=== PATIENT | female | born 1960 | race Caucasian/White ===

== ENCOUNTER → 2016-04-03 | Outpatient (REF) | payer BC ==
[~2016-04-03] MED LIST: /PANT40TA OR; /WARF5TA OR; ALDA25TA PO; ASPI81TA85 PO; BACI50OI EXT; BENA25CA2 PO; CEPH500C PO; ENOX40SY SC; FERR325T OR; FERR32TA PO; HYDR25TA6 OR; IBUP20TA PO; K-TA10TA PO; KLOR10TA OR; LEVO75TA2 OR; LEVO75TA4 PO; LISI-538 PO; LISI20TA5 OR; MILKSUS OR; NEXI20CA PO; PENT400T47 PO; PERC5TAB8 OR; PERCOCET PO; POTA20TA OR; SENN8.6C PO; SILV-4 TOP; TRENTAL PO; senokot s PO
== END ==
LOC: M LAB REF 16:12
PROVIDERS: ATTEND Surgery
DX: I87.312 Chronic venous hypertension (idiopathic) with ulcer of left lower extremity (principal)

== ENCOUNTER → 2016-05-23 | Outpatient (CLI) | payer BC ==
[~2016-05-23] MED LIST changes: +IBUP200T45 PO; -IBUP20TA PO
[2016-05-23 09:47] LABS: ALBUMIN 3.3 GM/DL (3.2-5.2); ALBUMIN/GLOBULIN RATIO 0.83 (1.00-1.93); ALKALINE PHOSPHATASE 81 U/L (45-117); ALT/SGPT 22 U/L (12-78); ANION GAP 8 MEQ/L (8-16); AST/SGOT 63 U/L (15-37); BILIRUBIN,TOTAL 0.3 MG/DL (0.2-1.0); BLOOD UREA NITROGEN 19 MG/DL (7-18); CALCIUM LEVEL 8.5 MG/DL (8.5-10.1); CARBON DIOXIDE LEVEL 28 MEQ/L (21-32); CHLORIDE LEVEL 107 MEQ/L (98-107); CHOLESTEROL LEVEL 221 MG/DL (<200); CREATININE FOR GFR 0.91 MG/DL (0.55-1.02); FREE T4 1.05 NG/DL (0.76-1.46); GLOMERULAR FILTRATION RATE > 60.0 (>51); GLUCOSE, FASTING 99 MG/DL (70-105); PERCENT SATURATION 9.7 % (13.2-37.4); SODIUM LEVEL 143 MEQ/L (136-145); TOTAL IRON BINDING CAPACITY 290 UG/DL (250-450); TOTAL PROTEIN 7.3 GM/DL (6.4-8.2); TRIGLYCERIDES LEVEL 218 MG/DL (<150)
[2016-05-23 09:54] LABS: BASO % 0.5 % (0.0-1.0); EOS # 0.3 K/mm3 (0.0-0.50); EOS % 4.6 % (0.0-3.0); LARGE UNSTAINED CELL # 0.1 K/mm3 (0.0-0.4); LYMPH # 1.7 K/mm3 (1.5-4.5); LYMPH % 26.2 % (24.0-44.0); MEAN CORPUSCULAR HEMOGLOBIN 24.1 pg (27.0-33.0); MEAN CORPUSCULAR HGB CONC 31.5 g/dl (32.0-36.5); MEAN CORPUSCULAR VOLUME 76.7 fl (80.0-96.0); MONO # 0.4 K/mm3 (0.0-0.8); MONO % 6.3 % (0.0-5.0); NEUTROPHILS # 3.9 K/mm3 (1.8-7.7); NEUTROPHILS % 60.4 % (36.0-66.0); PLATELET COUNT, AUTOMATED 231 k/mm3 (150-450); RED CELL DISTRIBUTION WIDTH 15.5 % (11.5-14.5); WHITE BLOOD COUNT 6.5 K/mm3 (4.0-10.0)
== END ==
LOC: M LAB 08:20
PROVIDERS: ATTEND Nurse Practitioner Family
DX: D50.9 Iron deficiency anemia, unspecified (principal); I10 Essential (primary) hypertension; E03.9 Hypothyroidism, unspecified

== ENCOUNTER → 2016-12-04 | Outpatient (REF) | payer BC ==
[~2016-12-04] MED LIST changes: +BACI500O74 EXT; -BACI50OI EXT
== END ==
LOC: M LAB REF 17:35
PROVIDERS: ATTEND Surgery
DX: I87.312 Chronic venous hypertension (idiopathic) with ulcer of left lower extremity (principal)

== ENCOUNTER → 2017-11-26 | Outpatient (REF) | payer BC ==
[2017-11-26 12:21] LABS: HEMATOCRIT 36.9 % (36.0-47.0); HEMOGLOBIN 11.5 g/dl (12.0-15.5); MEAN CORPUSCULAR HEMOGLOBIN 24.4 pg (27.0-33.0); MEAN CORPUSCULAR HGB CONC 31.2 g/dl (32.0-36.5); MEAN CORPUSCULAR VOLUME 78.3 fl (80.0-96.0); PLATELET COUNT, AUTOMATED 332 10^3/uL (150-450); RED BLOOD COUNT 4.71 10^6/uL (4.00-5.40); RED CELL DISTRIBUTION WIDTH 17.5 % (11.5-14.5); WHITE BLOOD COUNT 9.6 10^3/uL (4.0-10.0)
[2017-11-26 13:53] LABS: ALBUMIN 3.2 GM/DL (3.2-5.2); ALBUMIN/GLOBULIN RATIO 0.74 (1.00-1.93); ALKALINE PHOSPHATASE 49 U/L (45-117); ALT/SGPT 21 U/L (12-78); ANION GAP 10 MEQ/L (8-16); AST/SGOT 47 U/L (7-37); BILIRUBIN,TOTAL 0.4 MG/DL (0.2-1.0); BLOOD UREA NITROGEN 33 MG/DL (7-18); CALCIUM LEVEL 9.7 MG/DL (8.5-10.1); CARBON DIOXIDE LEVEL 27 MEQ/L (21-32); CHLORIDE LEVEL 103 MEQ/L (98-107); CHOLESTEROL LEVEL 241 MG/DL (<200); CHOLESTEROL RISK RATIO 5.477 (<5); FREE T4 1.01 NG/DL (0.76-1.46); GLOMERULAR FILTRATION RATE 49.8 (>51); GLUCOSE, FASTING 93 MG/DL (70-100); HDL CHOLESTEROL 44 MG/DL (>40); IRON (FE) 40 UG/DL (50-170); LDL CHOLESTEROL 158.2 MG/DL (<100); NON-HDL-C 197 MG/DL; PERCENT SATURATION 13.7 % (13.2-45.0); POTASSIUM SERUM 4.3 MEQ/L (3.5-5.1); SODIUM LEVEL 140 MEQ/L (136-145); TOTAL IRON BINDING CAPACITY 293 UG/DL (250-450); TOTAL PROTEIN 7.5 GM/DL (6.4-8.2); TRIGLYCERIDES LEVEL 194 MG/DL (<150)
[2017-11-27 12:58] LABS: FERRITIN 74 NG/ML (8-252)
[2017-11-28 12:26] LABS: HEPATITIS B SURFACE ANTIGEN NEGATIVE (NEGATIVE)
[2017-11-28 12:43] LABS: HEPATITIS C VIRUS ABY INDEX 0.2 INDEX (<0.8)
[2017-11-28 12:45] LABS: HEPATITIS B CORE ANTIBODY IGM NEGATIVE (NEGATIVE)
[2017-11-28 12:46] LABS: HEPATITIS A ANTIBODY IGM NEGATIVE (NEGATIVE)
== END ==
LOC: M SFHCPLAZ 09:54
DX: D50.9 Iron deficiency anemia, unspecified (principal); E03.9 Hypothyroidism, unspecified; E78.5 Hyperlipidemia, unspecified; I10 Essential (primary) hypertension
CPT/HCPCS: 83550

== ENCOUNTER → 2018-01-21 | Outpatient (CLI) | payer BC | LOC: M RAD 08:45 | DX: I87.8 Other specified disorders of veins (principal) | CPT/HCPCS: 93971 ==

== ENCOUNTER → 2018-06-10 | Outpatient (REF) | payer BC ==
[~2018-06-10] MED LIST changes: -ALDA25TA PO; +SPIR1TAB34 PO
[2018-06-10 16:59] LABS: BILIRUBIN,TOTAL 0.3 MG/DL (0.2-1.0); CALCIUM LEVEL 8.3 MG/DL (8.5-10.1); CREATININE FOR GFR 1.26 MG/DL (0.55-1.30); GLOMERULAR FILTRATION RATE 46.9 (>51); POTASSIUM SERUM 3.6 MEQ/L (3.5-5.1); TOTAL PROTEIN 6.8 GM/DL (6.4-8.2)
== END ==
LOC: M SFHCPLAZ 16:20
PROVIDERS: ATTEND Nurse Practitioner Family
DX: I10 Essential (primary) hypertension (principal); N17.9 Acute kidney failure, unspecified

== ENCOUNTER → 2018-06-24 | Outpatient (REF) | payer BC ==
[2018-06-24 19:16] LABS: HEMOGLOBIN 10.7 g/dl (12.0-15.5); MEAN CORPUSCULAR HEMOGLOBIN 23.7 pg (27.0-33.0); MEAN CORPUSCULAR HGB CONC 30.6 g/dl (32.0-36.5); MEAN CORPUSCULAR VOLUME 77.4 fl (80.0-96.0); PLATELET COUNT, AUTOMATED 412 10^3/uL (150-450); RED BLOOD COUNT 4.52 10^6/uL (4.00-5.40); WHITE BLOOD COUNT 11.3 10^3/uL (4.0-10.0)
[2018-06-24 19:58] LABS: ALBUMIN 3.1 GM/DL (3.2-5.2); CALCIUM LEVEL 9.4 MG/DL (8.5-10.1); CREATININE FOR GFR 1.22 MG/DL (0.55-1.30); GLOMERULAR FILTRATION RATE 48.7 (>51); PHOSPHORUS LEVEL 4.4 MG/DL (2.5-4.9); POTASSIUM SERUM 3.9 MEQ/L (3.5-5.1); THYROID STIMULATING HORMONE 3.87 uIU/ML (0.358-3.740)
[2018-06-25 11:20] LABS: PERCENT SATURATION 12.3 % (13.2-45.0)
== END ==
LOC: M SFHCPLAZ 16:50
PROVIDERS: ATTEND Nurse Practitioner Family
DX: N18.3 Chronic kidney disease, stage 3 (moderate) (principal); E03.9 Hypothyroidism, unspecified; D50.9 Iron deficiency anemia, unspecified

== ENCOUNTER → 2018-08-26 | Outpatient (REF) | payer BC ==
[~2018-08-26] MED LIST changes: -/PANT40TA OR; -/WARF5TA OR; +COUM1TAB17 OR; -ENOX40SY SC; +LOVE1INJ SC; +PROT1TAB2 OR
== END ==
LOC: M LAB REF 12:36
PROVIDERS: ATTEND Plastic Surgery Surgery of the Hand
DX: L03.116 Cellulitis of left lower limb (principal)

== ENCOUNTER → 2018-12-02 | Outpatient (REF) | payer BC ==
[2018-12-02 18:58] LABS: CALCIUM LEVEL 9.2 MG/DL (8.5-10.1); CREATININE FOR GFR 1.27 MG/DL (0.55-1.30); GLOMERULAR FILTRATION RATE 46.5 (>51)
[2018-12-02 19:00] LABS: HEMATOCRIT 36.4 % (36.0-47.0); MEAN CORPUSCULAR HEMOGLOBIN 23.9 pg (27.0-33.0); MEAN CORPUSCULAR HGB CONC 30.2 g/dl (32.0-36.5); PLATELET COUNT, AUTOMATED 367 10^3/uL (150-450); RED BLOOD COUNT 4.61 10^6/uL (4.00-5.40)
== END ==
LOC: M SFHCPLAZ 14:59
PROVIDERS: ATTEND Nurse Practitioner Family
DX: I12.9 Hypertensive chronic kidney disease with stage 1 through stage 4 chronic kidney disease, or unspecified chronic kidney disease (principal); N18.3 Chronic kidney disease, stage 3 (moderate)

== ENCOUNTER → 2020-03-20 | Outpatient (CLI) | payer SELFPAY ==
[~2020-03-20] MED LIST changes: -ASPI81TA85 PO; +ASPI81TA86 PO
== END ==
LOC: M LABSMTC 11:22
PROVIDERS: ATTEND Pediatrics
DX: Z20.828 Contact with and (suspected) exposure to other viral communicable diseases (principal)

== ENCOUNTER 2020-09-26 17:33 | Inpatient (IN) | payer BC, SELFPAY ==
[~2020-09-26] VITALS: Ht 160 cm; Wt 93.4 kg
[~2020-09-26 17:33] MED LIST changes: -LISI-538 PO; +LISI20TA33 PO
[2020-09-26] MEDS ORDERED: ONDANSETRON 4MG/2ML VIAL IV ONE ×2 (18:25→21:45)
--- NOTE | 2020-09-26 18:55 | REP ---
INDICATION: DYSPNEA/COUGH COMPARISON: 07/10/2006 TECHNIQUE: Portable AP view of the chest FINDINGS: The mediastinum and cardiac silhouette are stable and within normal limits for portable technique. The lung salas are clear without acute consolidation, effusion, or pneumothorax. Skeletal structures are intact. IMPRESSION: No acute cardiopulmonary process appreciated. <Electronically signed by Aleksandr Fermin > 09/26/20 [id number]
[2020-09-26 18:58] LABS: BASO # 0.1 10^3/uL (0.0-0.2); BASO % 0.3 % (0.0-1.0); EOS # 0.1 10^3/uL (0.0-0.5); EOS % 0.6 % (0.0-3.0); HEMATOCRIT 26.8 % (36.0-47.0); HEMOGLOBIN 7.9 g/dl (12.0-15.5); LYMPH # 2.1 10^3/uL (1.5-5.0); LYMPH % 10.1 % (24.0-44.0); MEAN CORPUSCULAR HEMOGLOBIN 23.8 pg (27.0-33.0); MEAN CORPUSCULAR HGB CONC 29.5 g/dl (32.0-36.5); MEAN CORPUSCULAR VOLUME 80.7 fl (80.0-96.0); MONO # 1.6 10^3/uL (0.0-0.8); MONO % 7.7 % (2.0-8.0); NEUTROPHILS # 16.8 10^3/uL (1.5-8.5); NEUTROPHILS % 80.3 % (36.0-66.0); PLATELET COUNT, AUTOMATED 548 10^3/uL (150-450); RED BLOOD COUNT 3.32 10^6/uL (4.00-5.40)
[2020-09-26 19:19] LABS: ALBUMIN 2.3 GM/DL (3.2-5.2); ALT/SGPT 21 U/L (12-78); BILIRUBIN,DIRECT < 0.1 MG/DL (0.0-0.2); BILIRUBIN,TOTAL 0.2 MG/DL (0.2-1.0); BLOOD UREA NITROGEN 96 MG/DL (7-18); CALCIUM LEVEL 9.3 MG/DL (8.5-10.1); CARBON DIOXIDE LEVEL 14 MEQ/L (21-32); CHLORIDE LEVEL 106 MEQ/L (98-107); CREATININE FOR GFR 2.51 MG/DL (0.55-1.30); GLUCOSE, FASTING 101 MG/DL (70-100); POTASSIUM SERUM 4.1 MEQ/L (3.5-5.1); SODIUM LEVEL 137 MEQ/L (136-145); TOTAL PROTEIN 7.1 GM/DL (6.4-8.2)
[2020-09-26] MEDS ORDERED: MORPHINE 10 MG/ML 1ML VIAL (J2270) IM ONE (19:20)
[2020-09-26] MEDS ORDERED: MORPHINE 4 MG/ML 1ML VIAL/SYRINGE (J2270) IV ONE (21:45)
[2020-09-26] MEDS ORDERED: SYNT88TA2 PO (21:50)
[2020-09-26] MEDS ORDERED: GLUCTAB6 PO (21:50)
[2020-09-26] MEDS ORDERED: ACET-897 PO (21:50)
[2020-09-26] MEDS ORDERED: IBUP-1720 PO (21:50)
[2020-09-26] MEDS ORDERED: BENA25CA4 PO (21:50)
[2020-09-26] MEDS ORDERED: ALDA25TA4 PO (21:50)
[2020-09-26] MEDS ORDERED: OYST500T92 PO (21:50)
[2020-09-26] MEDS ORDERED: VITMTA PO (21:50)
[2020-09-26] MEDS ORDERED: CEFEPIME HCL 1 GM in D5W MINI-BAG PLUS 50 ML IV ONE (22:40)
[2020-09-26] MEDS ORDERED: PIPERACILLIN/TAZOBACTAM SOD 3.375 GM in D5W MINI-BAG PLUS 50 ML IV ONE (22:40)
[2020-09-26] MEDS ORDERED: MAALOX 30 ML SUSP *UDC PO PRN (23:05)
[2020-09-26] MEDS ORDERED: MOM 30ML SUSPENSION UDC PO PRN (23:05)
--- NOTE | 2020-09-26 23:34 | HPEPDOC ---
[facility] Medical History & Physical Date of Admission Sep 26, 2020 Date of Service: Sep 26, 2020 Attending Physician: ARIELLE MARTINES DO History and Physical CHIEF COMPLAINT: Left lower extremity swelling, erythema and pain HISTORY OF PRESENT ILLNESS: Mrs. Bliss is a 59-year-old female who presented to the ER with complaints of shortness of breath with exertion over the last 2 weeks. It's normally she is able to go about her activities of daily living with no difficulty other than the pain in her left lower extremity which is chronic. Over the last 2 weeks. She is noticed that she has had to stop and rest after even the simplest tasks. He denies any cough, fever, chills, nausea or vomiting. She has been experiencing diarrhea over the last 2 days. She states that the pain in her left lower extremity has got to the point where she cannot stand it, and for that reason she presented to the ER. She has a long history of chronic venous stasis ulcers on that leg. She was actually admitted 2015 with similar symptoms. She followed with Dr. Ortez until May of last year when [facility] closed everything down. She said she had been doing well with her leg up until that point. There have been plans for referral to a plastic surgeon, but her leg began to decline again last year without regular care. She says she has not been able to do any compression to that leg for quite some time and describes compression hose as being the problem. She denied any knowledge of compression with Torito wrap and thinks she might have tried Coban and at some point. For the last several months she has been treating her leg by applying maxipads to try to control the drainage. She states that she is house bound for the most part, because of her leg. She has also been experiencing some financial difficulty and her has not been in good health. On initial evaluation this evening. She was found to have a white count of 21,000. She was also noted to have an acute kidney injury with creatinine of 2.51 and a GFR of 21. Baseline creatinine, with a history of chronic kidney disease stage III, appears to be around 1.2-1.3. Baseline GFR appears to be around 46-49. Patient's previous acute kidney injury was attributed to NSAID use. She admits to increasing her use of ibuprofen in an attempt to control pain. She is also found to be anemic with a history of iron deficiency anemia. Hemoglobin and hematocrit were 7.9 and 26.8. She denied any signs or symptoms of active bleeding. Chest x-ray was negative for any acute pathology. O2 sat remained 99% on room air. PAST MEDICAL HISTORY: 1. Hypothyroid. 2. Hypertension. 3. Gastroesophageal reflux disease. 4. Chronic kidney disease stage III. 5. Peripheral vascular disease with venous stasis. 6. Chronic venous stasis ulcer, left lower extremity. 7. Iron deficiency anemia. 8. Blood clot PAST SURGICAL HISTORY: 1. Left hip arthroplasty 2. 2. Skin graft, left lower extremity. 3. Left great toe partial amputation. 4. Multiple debridements, left lower extremity SOCIAL HISTORY: Tobacco use: Denies ETOH:. Denies Illicit drug use: Denies Patient lives with: With her and found FAMILY HISTORY: Patient's mother at 78 from an unknown cancer. Her father was 81 with a history of coronary artery disease and an unknown cancer REVIEW OF SYSTEMS: Complete 10 point review systems is negative except as noted above PHYSICAL EXAMINATION: Patient is seen in the ER, sitting up on the stretcher. She is alert and oriented x 3. HEENT is WNL. Neck is supple. Lungs are clear to auscultation. Heart regular rate and rhythm with murmur. Abdomen is obese , soft, non-tender to palpation with bowel sounds positive. Extremities strength equal bilaterall y. 1+ lower extremity edema. Left lower extremity with circumferential chronic venous stasis ulcer, which is malodorous. Chronic thickening of the skin and open wounds with wound base is bland with a thick exudate. Some darker tissue noted in some of the wound beds. Erythema extending from from distal foot up to the lower portion of the wound. Foot with Charcot changes. Pedal pulses diminished. Refill fair. Neurologic: Grossly intact. Psych: She is pleasant and cooperative. ASSESSMENT AND PLAN: 1. Sepsis secondary to left lower extremity infected venous stasis ulcer with acute on chronic kidney injury and leukocytosis. We'll continue the patient on cefepime. Will initiate dressing changes. Patient would benefit from a wound care consult, as she will probably need some debridement. Would also recommend deep tissue cultures with debridement in order to guide antibiotic therapy. Will initiate compression. Patient counseled extensively on the need for compliance with wound care going forward. 2. Shortness of breath, possibly secondary to sepsis. Patient also with new heart murmur. Will check echocardiogram and BNP. Monitor intake and output closely. 3. Acute kidney injury with chronic kidney disease in the setting of ongoing NSAID use. Patient counseled to avoid NSAIDs. Monitor intake and output closely. Avoid nephrotoxic medications. Recheck renal function in morning. 4. Hypertension, essential. Continue home lisinopril and monitor with routine vital signs. Will adjust medications as needed based on trends. 5. Hypothyroid. Continue hormone replacement and check TSH. 6. Anemia, acute, secondary to acute blood loss with hemodilution on chronic with history of iron deficiency. Current studies. Nutritional status. Continue to monitor hemoglobin and hematocrit closely. Check Hemoccult of stool. 7. DVT prophylaxis. Will add heparin. CODE STATUS: CODE STATUS was discussed with patient desires to be considered full code. She states her would act as her surrogate if she were unable to make decisions. Patient is considered high risk of further deterioration including possible septic shock, or loss of limb. She is admitted as inpatient and expected to remain at least 2-3 midnights Vital Signs Vital Signs Date Time Temp Pulse Resp B/P (MAP) Pulse Ox O2 Delivery O2 Flow Rate FiO2 09/26/20 22:00 79 124/58 (80) 99 Room Air 09/26/20 21:51 20 09/26/20 17:34 97.8 Laboratory Data Labs 24H Laboratory Tests 2 09/26/20 18:44: Immature Granulocyte % (Auto) 1.0, Neutrophils (%) (Auto) 80.3H, Lymphocytes (%) (Auto) 10.1L, Monocytes (%) (Auto) 7.7, Eosinophils (%) (Auto) 0.6, Basophils (%) (Auto) 0.3, Neutrophils # (Auto) 16.8H, Lymphocytes # (Auto) 2.1, Monocytes # (Auto) 1.6H, Eosinophils # (Auto) 0.1, Basophils # (Auto) 0.1, Nucleated Red Blood Cells % (auto) 0.0, Anion Gap 17H, Glomerular Filtration Rate 21.0L, Calcium Level 9.3, Total Bilirubin 0.2, Direct Bilirubin < 0.1, Aspartate Amino Transf (AST/SGOT) 25, Alanine Aminotransferase (ALT/SGPT) 21, Alkaline Phosphatase 48, Total Protein 7.1, Albumin 2.3L, Albumin/Globulin Ratio 0.5L 09/26/20 19:07: POC Troponin I (Misc) 0.01 09/26/20 19:39: Coronavirus (COVID-19)(PCR) NEGATIVE CBC/BMP Laboratory Tests 09/26/20 18:44 Microbiology Microbiology 09/26/20 Blood Culture, Received Pending 09/26/20 Blood Culture, Received Pending Home Medications Scheduled Calcium Carbonate/Vitamin D3 (Calcium 500-Vit D3 200 Tablet) 1 Each Tablet, 1 TAB PO DAILY Gluc Richards/Chondro Richards A/Vit C/Mn (Glucosamine Chondroitin Tab) 1 Each Tablet, 1 TAB PO DAILY Levothyroxine Sodium (Synthroid) 88 Mcg Tablet, 88 MCG PO DAILY Multivitamins (Thera M Plus Tablet) 1 Each Tablet, 1 TAB PO DAILY Spironolact/Hydrochlorothiazid (Aldactazide 25-25 Tablet) 1 Each Tablet, 1 TAB PO DAILY Scheduled PRN Acetaminophen (Tylenol Extra Strength) 500 Mg Tablet, 500 MG PO Q4H PRN for PAIN LEVEL 1-5 Diphenhydramine HCl (Benadryl) 25 Mg Capsule, 25 MG PO QHS PRN for INSOMNIA Ibuprofen (Ibuprofen) 200 Mg Tablet, 400 MG PO Q6H PRN for PAIN LEVEL 1-5 Allergies Coded Allergies: iodine (Verified Allergy, Unknown, unknown, 09/26/20) naproxen (Verified Allergy, Unknown, unknown, 09/26/20) A-FIB/CHADSVASC A-FIB History Current/History of A-Fib/PAF?: No KWAKU VENTURA Sep 26, 2020 23:34
[2020-09-27] VITALS (9 sets, daily range): BP systolic 84–93; BP diastolic 49–58
[2020-09-27 00:06] LABS: NT-PRO BNP 851 PG/ML (<125)
[2020-09-27 00:15] LABS: HEMOGLOBIN A1c 6.3 %
[2020-09-27] MEDS: NORCO, ANEXSIA 5/325MG TABLET (HYDROcodone/ACETAMINOPHEN) PO PRN ×3 (01:29→17:09)
[2020-09-27] MEDS ORDERED: diphenhydrAMINE 25MG CAP PO PRN (03:15)
[2020-09-27 05:47] LABS: HEMATOCRIT 24.3 % (36.0-47.0); HEMOGLOBIN 7.2 g/dl (12.0-15.5); MEAN CORPUSCULAR HEMOGLOBIN 24.2 pg (27.0-33.0); MEAN CORPUSCULAR HGB CONC 29.6 g/dl (32.0-36.5); MEAN CORPUSCULAR VOLUME 81.5 fl (80.0-96.0); PLATELET COUNT, AUTOMATED 489 10^3/uL (150-450); RED BLOOD COUNT 2.98 10^6/uL (4.00-5.40); WHITE BLOOD COUNT 21.5 10^3/uL (4.0-10.0)
[2020-09-27] MEDS: HEPARIN SOD (PORCINE) 5000UNITS/ML 1ML VIAL/SYRINGE SC SCH ×2 (06:14→12:39)
[2020-09-27] MEDS: LEVOTHYROXINE 88MCG TABLET (0.088 MG) PO SCH (06:14)
[2020-09-27] MEDS: ACETAMINOPHEN TAB 650MG DOSE (2X325MG) PO PRN ×2 (06:14→21:15)
[2020-09-27 06:31] LABS: CALCIUM LEVEL 8.9 MG/DL (8.5-10.1); CREATININE FOR GFR 1.95 MG/DL (0.55-1.30); GLOMERULAR FILTRATION RATE 28.1 (>51); MAGNESIUM LEVEL 1.6 MG/DL (1.8-2.4); PERCENT SATURATION 8.8 % (13.2-45.0); POTASSIUM SERUM 4.1 MEQ/L (3.5-5.1); THYROID STIMULATING HORMONE 0.564 uIU/ML (0.358-3.740)
[2020-09-27 09:15] LABS: FOLATE 20.4 NG/ML (>5.4)
--- NOTE | 2020-09-27 11:15 | ECGEPIP ---
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
[2020-09-27] MEDS ORDERED: NS 500 ML IV ONE (12:10)
[2020-09-27] MEDS: NS 1,000 ML IV SCH ×2 (12:38→22:25)
--- NOTE | 2020-09-27 15:11 | IPNPDOC ---
Subjective Date Seen The patient was seen on 09/27/20. Subjective Chief Complaint/HPI left leg pain/wound Objective Physical Examination General Exam: Positive: Alert, Cooperative, No Acute Distress Eye Exam: Positive: PERRLA ENT Exam: Positive: Atraumatic Neck Exam: Positive: Supple Chest Exam: Positive: Clear to auscultation Heart Exam: Positive: Rate Normal Abdomen Exam: Positive: Normal bowel sounds Extremity Exam: Negative: Edema Skin Exam: Positive: Other skin issue (skin denudation over entire left lower leg with area of erythema with few bleeding spots ) Neuro Exam: Positive: Normal Speech, Strength at 5/5 X4 ext Psych Exam: Positive: Mood NL Assessment /Plan Assessment 59 y/o F with chronic left lower leg wound for that she f/u with Dr Ortez came to ER c/o exertional SOB, diarrhea and ambulatory dysfunction due to left lower extremity pain. Labs and imaging studies reviewed Pt c/o left leg pain Plan 1. Sepsis secondary to left leg cellulitis iv cefepime ivf NS f/u wound culture will f/u with Dr Ortez for possible debridement will f/u blood culture 2. chronic left lower extremity wound PO tylenol prn for pain pt got iv morphine for pain There have been plan to refer to a plastic surgeon. will f/u Dr Ortez wound care 3. exertional shortness of breath most probably secondary to symptomatic anemia no sign and symptom suggestive of active bleeding will f/u stool occult blood will transfuse 1 unit PRBC will f/u ECHO 4. YU on CKD stage 3 Baseline Cr 1.2-1.3 pt was taking PO Ibuprofen at home for left leg pain will f/u UA, US kidneys intake/output f/u repeat labs 5. Symptomatic anemia NSAIDs use for pain PO pantoprazole EGD inpatient vs outpatient if pt remains stable outpatient EGD/Colonoscopy as per PMD discretion NO NSAIDs 6. HTN will hold lisinopril in view of YU 7. Hypothyroidism home med 8. Obesity supportive care h/o Peripheral vascular disease with venous stasis h/o blood clot DVT ppx- chemical ppx contraindicated in view of symptomatic anemia, intermittent pneumatic compression Plan/VTE VTE Prophylaxis Ordered?: No VTE Exclusion Pharmacological: Bleeding Risk VS, I&O, 24H, Fishbone Vital Signs/I&O Vital Signs Date Time Temp Pulse Resp B/P (MAP) Pulse Ox O2 Delivery O2 Flow Rate FiO2 6/30/21 13:13 19 09/27/20 06:00 98.3 88 100 Room Air 09/27/20 05:51 93/51 (65) I&O- Last 24 Hours up to 6 AM 09/27/20 05:59 Intake Total 200 ml Balance 200 ml Laboratory Data 24H LABS Laboratory Tests 2 09/26/20 18:44: Immature Granulocyte % (Auto) 1.0, Neutrophils (%) (Auto) 80.3H, Lymphocytes (%) (Auto) 10.1L, Monocytes (%) (Auto) 7.7, Eosinophils (%) (Auto) 0.6, Basophils (%) (Auto) 0.3, Neutrophils # (Auto) 16.8H, Lymphocytes # (Auto) 2.1, Monocytes # (Auto) 1.6H, Eosinophils # (Auto) 0.1, Basophils # (Auto) 0.1, Nucleated Red Blood Cells % (auto) 0.0, Anion Gap 17H, Glomerular Filtration Rate 21.0L, Estimated Mean Plasma Glucose 134H, Hemoglobin A1c 6.3, Calcium Level 9.3, Total Bilirubin 0.2, Direct Bilirubin < 0.1, Aspartate Amino Transf (AST/SGOT) 25, Alanine Aminotransferase (ALT/SGPT) 21, Alkaline Phosphatase 48, BH-Lti-D-Type Natriuretic Peptide 851H, Total Protein 7.1, Albumin 2.3L, Albumin/Globulin Ratio 0.5L 09/26/20 19:07: POC Troponin I (Misc) 0.01 09/26/20 19:39: Coronavirus (COVID-19)(PCR) NEGATIVE 09/27/20 00:09: Lactic Acid Level 2.0 09/27/20 05:25: Nucleated Red Blood Cells % (auto) 0.0 09/27/20 05:26: Anion Gap 12, Glomerular Filtration Rate 28.1L, Calcium Level 8.9, Magnesium Level 1.6L, Iron Level 13L, Total Iron Binding Capacity 148L, Transferrin % Saturation 8.8L, Ferritin 411H, Vitamin B12 Level 1566H, Folate 20.4, Thyroid Stimulating Hormone (TSH) 0.564 CBC/BMP Laboratory Tests 09/26/20 18:44 09/27/20 05:25 09/27/20 05:26 Microbiology Microbiology 09/26/20 Blood Culture, Received Pending 09/26/20 Blood Culture, Received Pending LINDSEY PUCKETT MD Sep 27, 2020 15:11
[2020-09-27] MEDS ORDERED: PANTOPRAZOLE 40MG TAB (PROTONIX) PO SCH (17:50)
--- NOTE | 2020-09-27 18:43 | REP ---
INDICATION: YU. COMPARISON: 08/05/2015 TECHNIQUE: Bilateral renal ultrasound FINDINGS: Multiple ultrasonographic images of the right kidney show the right kidney to measure 9.9 x 5.8 x 4 cm. The renal cortical echotexture is unremarkable. There are no masses. There is good corticomedullary differentiation. There is no hydronephrosis. There are no perinephric fluid collections. Multiple ultrasonographic images of the left kidney show the left kidney to measure 9.9 x 4.7 x 4.9 cm. The renal cortical echotexture is unremarkable. There are no masses. There is good corticomedullary differentiation. There is no hydronephrosis. There are no perinephric fluid collections. IMPRESSION: Unremarkable renal ultrasonography. No significant change from the prior exam <Electronically signed by J Carlos Cobb > 09/27/20 [id number]
[2020-09-27] MEDS ORDERED: CEFEPIME HCL 2 GM in D5W MINI-BAG PLUS 50 ML IV SCH (21:00)
[2020-09-28] VITALS (21 sets, daily range): BP systolic 90–114; BP diastolic 50–80
[2020-09-28] MEDS: LEVOTHYROXINE 88MCG TABLET (0.088 MG) PO SCH (05:54)
[2020-09-28] MEDS: NORCO, ANEXSIA 5/325MG TABLET (HYDROcodone/ACETAMINOPHEN) PO PRN ×4 (05:59→21:18)
[2020-09-28 06:21] LABS: BASO # 0.1 10^3/uL (0.0-0.2); BASO % 0.3 % (0.0-1.0); EOS # 0.1 10^3/uL (0.0-0.5); EOS % 0.5 % (0.0-3.0); HEMATOCRIT 24.6 % (36.0-47.0); HEMOGLOBIN 7.3 g/dl (12.0-15.5); LYMPH # 1.5 10^3/uL (1.5-5.0); LYMPH % 7.1 % (24.0-44.0); MEAN CORPUSCULAR HEMOGLOBIN 24.3 pg (27.0-33.0); MEAN CORPUSCULAR HGB CONC 29.7 g/dl (32.0-36.5); MEAN CORPUSCULAR VOLUME 81.7 fl (80.0-96.0); MONO # 1.9 10^3/uL (0.0-0.8); MONO % 8.7 % (2.0-8.0); NEUTROPHILS # 17.7 10^3/uL (1.5-8.5); NEUTROPHILS % 82.7 % (36.0-66.0); PLATELET COUNT, AUTOMATED 428 10^3/uL (150-450); RED BLOOD COUNT 3.01 10^6/uL (4.00-5.40)
[2020-09-28 06:23] LABS: WHITE BLOOD COUNT 21.4 10^3/uL (4.0-10.0)
[2020-09-28 06:41] LABS: CALCIUM LEVEL 8.3 MG/DL (8.5-10.1); CREATININE FOR GFR 1.4 MG/DL (0.55-1.30); GLOMERULAR FILTRATION RATE 41.3 (>51); MAGNESIUM LEVEL 1.7 MG/DL (1.8-2.4); POTASSIUM SERUM 3.9 MEQ/L (3.5-5.1)
[2020-09-28] MEDS ORDERED: MAG SULF 1GM/100ML (MAG RUN) 1 GM in IV 1 EA IV ONE (08:00)
[2020-09-28] MEDS: SUCRALFATE SUSP 1GM/10ML UD PO SCH ×4 (08:49→21:16)
[2020-09-28] MEDS: PANTOPRAZOLE 40MG VIAL (C9113 PER 1) IV SCH ×2 (08:49→21:16)
[2020-09-28] MEDS: NS 1,000 ML IV SCH ×2 (08:49→16:37)
[2020-09-28] MEDS ORDERED: CEFEPIME HCL 1 GM in D5W MINI-BAG PLUS 50 ML IV SCH (10:00)
[2020-09-28] MEDS: CEFEPIME HCL 2 GM in D5W MINI-BAG PLUS 50 ML IV SCH ×2 (13:52→21:16)
--- NOTE | 2020-09-28 15:07 | IPNPDOC ---
Subjective Date Seen The patient was seen on 09/28/20. Subjective Chief Complaint/HPI Patient has been having lower than usual Bps since yesterday without any symptoms. Her MAP has been above 65. Her renal function has improved. No complaints this morning. No fever or chills. Hb remains unchanged after 1 unit of transfusion will order 2 more units today. Objective Physical Examination General Exam: Positive: Alert, Cooperative, No Acute Distress Eye Exam: Positive: PERRLA, Conjunctiva & lids normal ENT Exam: Positive: Atraumatic Neck Exam: Positive: Supple Chest Exam: Positive: Clear to auscultation, Normal air movement Heart Exam: Positive: Rate Normal, Regular Rhythm, Normal S1, Normal S2; Negative: Murmurs, Rubs Abdomen Exam: Positive: Normal bowel sounds, Soft; Negative: Tenderness, Hepatospenomegaly Extremity Exam: Negative: Edema Skin Exam: Positive: Other skin issue (skin denudation over entire left lower leg with area of erythema with few bleeding spots ) Neuro Exam: Positive: Normal Speech, Strength at 5/5 X4 ext Psych Exam: Positive: Mood NL, Memory Intact, Oriented x 3 Assessment /Plan Assessment 59 y/o F with chronic left lower leg circumferential venous stasis wound present for 10 years, h/o DVT, HTN, Hypothyroid, chronic anemia, skin graft in left leg 2010, came to ER c/o exertional SOB x 2 weeks , diarrhea and ambulatory dysfunction due to increased left lower extremity pain. She was found to be anemic with Hb of 7.1 and also had sepsis from left leg cellulitis. Sepsis secondary to left leg cellulitis iv cefepime Dr Baldwin consult appreciated. blood culture no growth till date MRSA screen Symptomatic Anemia Has history of chronic anemia used to be on iron, not anymore. Iron profile does show iron def with low TSAT though increased ferritin likely form chronic inflammation. transfused 3 units. If Hb does not respond appropriately to transfusion or drops again will likely get an EGD/Colonoscopy as inpatient otherwise will be done as outpateitn with Dr Serrano. Discussed plan with Dr Serrano Patient takes high doses of ibuprofen daily will continue with PPI and sucralfate. YU on CKD stage 3 Baseline Cr 1.2-1.3 pt was taking PO Ibuprofen at home for left leg pain for years, was also septic on the back ground of being on diuretics. US kidneys no obstruction. improving. Chronic left lower extremity wound / Venous stasis Venous stasis ulcer will follow Dr baldwin's recommendations for dressing PO tylenol prn for pain There have been plan to refer to a plastic surgeon. will f/u Dr Baldwin wound care HTN Hold antihypertensives due to hypotension and YU Hypothyroidism home med Obesity supportive care h/o Peripheral vascular disease with venous stasis h/o blood clot Plan/VTE VTE Prophylaxis Ordered?: No VTE Exclusion Pharmacological: Bleeding Risk VS, I&O, 24H, Fishbone Vital Signs/I&O Vital Signs Date Time Temp Pulse Resp B/P (MAP) Pulse Ox O2 Delivery O2 Flow Rate FiO2 09/28/20 14:20 98.2 92 16 109/80 95 Room Air I&O- Last 24 Hours up to 6 AM 09/28/20 06:00 Intake Total 4628 ml Output Total 2100 ml Balance 2528 ml Laboratory Data 24H LABS Laboratory Tests 2 09/28/20 05:41: Immature Granulocyte % (Auto) 0.7, Neutrophils (%) (Auto) 82.7H, Lymphocytes (%) (Auto) 7.1L, Monocytes (%) (Auto) 8.7H, Eosinophils (%) (Auto) 0.5, Basophils (%) (Auto) 0.3, Neutrophils # (Auto) 17.7H, Lymphocytes # (Auto) 1.5, Monocytes # (Auto) 1.9H, Eosinophils # (Auto) 0.1, Basophils # (Auto) 0.1, Nucleated Red Blood Cells % (auto) 0.0, Anion Gap 13, Glomerular Filtration Rate 41.3L, Calcium Level 8.3L, Magnesium Level 1.7L 09/28/20 05:58: Urine Color YELLOW, Urine Appearance CLEAR, Urine pH 5.0, Urine Specific Dendron 1.015, Urine Protein 1+H, Urine Glucose (UA) NEGATIVE, Urine Ketones NEGATIVE, Urine Blood NEGATIVE, Urine Nitrite NEGATIVE, Urine Bilirubin NEGATIVE, Urine Urobilinogen 0.2, Urine Leukocyte Esterase NEGATIVE, Urine WBC (Auto) 2, Urine RBC (Auto) 0, Urine Hyaline Casts (Auto) 0, Urine Bacteria (Auto) NEGATIVE, Urine Squamous Epithelial Cells 0, Urine Sperm (Auto) 09/28/20 12:42: CBC/BMP Laboratory Tests 09/28/20 05:41 Microbiology Microbiology 09/28/20 Gram Stain - Final, Resulted 09/28/20 Wound Culture, Resulted Pending 09/26/20 Blood Culture - Preliminary, Resulted No growth after 24 hours . All specim... 09/26/20 Blood Culture - Preliminary, Resulted No growth after 24 hours . All specim... TANIKA BOOTH MD Sep 28, 2020 15:07
[2020-09-28] MEDS: MORPHINE 2 MG/ML 1ML VIAL (J2270) IV PRN (15:09)
--- NOTE | 2020-09-28 17:36 | ECHO ---
ECHOCARDIOGRAM DATE OF PROCEDURE: 09/27/2020 Age: 59 Gender: Female Height: 63 inches Weight: 205 pounds Body surface area: 1.95 m2 PATIENT LOCATION: Inpatient [address] [place] [address], Room 5131. REFERRING PHYSICIAN: Estela Dhaliwal NP INDICATION: Dyspnea. MEASUREMENTS: 2D Measurements: RV 3.4 cm LV 4.0 cm Septum 1.2 cm Posterior wall 1.2 cm Aortic Root 3.9 cm LA 4.0 cm LVEF 75-80% Doppler Measurements: AV 2.44 m/s LVOT - Unfortunately off angle and not reliable LVOT diameter 1.8 cm Mean AV systolic gradient 16 mmHg MV-E 57, A 108, E/A ratio 0.5 Early mitral deceleration time 230 msec E prime medial 6.3, A prime medial 15, E prime lateral 8.8 Average E/E prime ratio 7.5/PCWP 11.3 mmHg PV 1.0 m/s Pulmonary artery acceleration time 87 msec RVSP 42 mmHg IVC 1.2 cm COMMENTS: Normal sinus rhythm without intraventricular conduction disturbance. Technically challenging study in light of the patient's body habitus, but diagnostically useful information was still obtained. M-mode and two-dimensional echocardiography was performed with pulse, continuous wave, color flow, and tissue Doppler studies. Mild concentric left ventricular hypertrophy with hyperkinetic wall motion. Mildly dilated left atrium with grade 1 LV diastolic dysfunction, but currently normal estimated mean left atrial pressure. Normal right heart chamber sizes and wall motion with Doppler evidence of moderate pulmonary hypertension. Normal IVC size and collapse against an elevated central venous pressure. Aortic root diameter upper limits of normal. Moderate aortic valvular sclerosis with worse case mild stenosis, but no apparent insufficiency. Mild mitral annular calcification without inflow tract obstruction and only mild insufficiency. Normal appearing tricuspid valve with mild insufficiency. No apparent intracardiac mass or pericardial effusion. If endocarditis was suspect in this patient, would recommend complete blood count with sedimentation rate and two sets of blood cultures by 12 hours as a minimum. We could not rule out a sessile vegetation due to our technically difficulties with her body habitus. MTDD
[2020-09-28 18:10] LABS: HEMATOCRIT 32.8 % (36.0-47.0)
[2020-09-28 18:26] LABS: HEMOGLOBIN 10.1 g/dl (12.0-15.5)
--- NOTE | 2020-09-28 19:00 | CR ---
ADVANCED WOUND CARE CONSULTATION DATE: 09/28/2020 TELEMEDICINE REFERRING PHYSICIAN: Zaid Hoyos DO. REASON FOR CONSULTATION: Treatment of left lower extremity extensive venous stasis ulcer. Wound care telemedicine provides a visual assessment of a wound without the benefit of physical examination. It can assist with establishing a diagnosis and etiology. This allows for initial treatment plan. As wounds often change, it may be necessary to modify the original care. Our recommendation is periodic wound reassessment to monitor treatment. Failure to comply may result in nonhealing of the wound, possible complications, and/or a poor outcome. The recommendations given will serve as treatment options. As I will not be following this patient, this care plan will require the attending physician to give and sign the orders. Upon discharge outpatient follow-up can be arranged at our wound care center. HISTORY OF PRESENT ILLNESS: This is a 59-year-old patient well known to our wound care center noncompliant in treatment, last seen over a year and a half ago for a nonhealing significant left lower extremity venous stasis ulcer. The patient did not followup and as a result, no longer participated in her wound care. When she was actively seen, she was reluctant to follow any of the guidelines we recommended. The patient was admitted for worsening of her already existing venous stasis ulcer, significant pain and malaise When seen in consultation the patient is now hospitalized with an extensive, very large and completely circumferential venous stasis ulcer of the left lower extremity. The wound measures 30.0 cm circumferentially with a vertical measurement of 27.0 cm. It is unclear if she was actually septic at the time of admission or not, Blood culture was negative, her pulse has been running in the 80s, and she has been afebrile. Her white count, however, was 21,000, but this reflects an extensive wound with necrotic tissue. Blood pressure 95/54. The patient was found to be anemic with a hemoglobin of 7.0. The patient is on cefepime. And has received a transfusion. TREATMENT RECOMMENDATIONS: This wound should be cleaned with a wound Lolly on an every other day basis. The Lolly can be immersed in Vashe our wound cleanser and used to debride and clean the wound. Dressing changes should include Hydrofera BLUE transfer placed in a circumferential manner covered with an OptiLock. It may be necessary to tape the OptiLock together to cover this large size wound. This should then be secured with a Kerlix or Lakeshia and a Tubigrip stocking utilized. The patient should be at bed rest with Trendelenburg position in an effort to decompress the venous system. Prophylactic anticoagulation should be initiated. Prophylactic heel float boots should also be considered in an effort to avoid any deep tissue injuries. Upon reassessment, the patient should undergo a standing and supine venous ultrasound along with an arterial ultrasound. If the patient wishes to follow-up at our wound clinic, she is welcome to return; however, compliance has always been an issue and for unknown reasons, the patient refused to obtain any appropriate dressings; indicating that her insurance did not cover this. MANUEL
[2020-09-29] MEDS: NS 1,000 ML IV SCH ×2 (04:10→13:50)
[2020-09-29 05:35] VITALS: BP 115/75
[2020-09-29] MEDS: LEVOTHYROXINE 88MCG TABLET (0.088 MG) PO SCH (05:50)
[2020-09-29 06:22] LABS: BASO # 0.1 10^3/uL (0.0-0.2); BASO % 0.4 % (0.0-1.0); EOS # 0.2 10^3/uL (0.0-0.5); EOS % 1.8 % (0.0-3.0); HEMATOCRIT 30.3 % (36.0-47.0); HEMOGLOBIN 9.4 g/dl (12.0-15.5); LYMPH # 1.7 10^3/uL (1.5-5.0); LYMPH % 12.7 % (24.0-44.0); MEAN CORPUSCULAR HEMOGLOBIN 25.5 pg (27.0-33.0); MEAN CORPUSCULAR VOLUME 82.3 fl (80.0-96.0); MONO # 1.2 10^3/uL (0.0-0.8); MONO % 9.2 % (2.0-8.0); NEUTROPHILS # 9.9 10^3/uL (1.5-8.5); PLATELET COUNT, AUTOMATED 402 10^3/uL (150-450); RED BLOOD COUNT 3.68 10^6/uL (4.00-5.40); WHITE BLOOD COUNT 13.1 10^3/uL (4.0-10.0)
[2020-09-29 06:42] LABS: BLOOD UREA NITROGEN 34 MG/DL (7-18); CALCIUM LEVEL 8.6 MG/DL (8.5-10.1); CARBON DIOXIDE LEVEL 18 MEQ/L (21-32); CHLORIDE LEVEL 114 MEQ/L (98-107); CREATININE FOR GFR 0.78 MG/DL (0.55-1.30); GLOMERULAR FILTRATION RATE > 60.0 (>51); GLUCOSE, FASTING 88 MG/DL (70-100); POTASSIUM SERUM 3.7 MEQ/L (3.5-5.1); SODIUM LEVEL 144 MEQ/L (136-145)
[2020-09-29] MEDS: PANTOPRAZOLE 40MG VIAL (C9113 PER 1) IV SCH ×2 (08:29→20:10)
[2020-09-29] MEDS: SUCRALFATE SUSP 1GM/10ML UD PO SCH ×4 (08:29→20:10)
[2020-09-29] MEDS: NORCO, ANEXSIA 5/325MG TABLET (HYDROcodone/ACETAMINOPHEN) PO PRN ×3 (08:30→20:11)
[2020-09-29] MEDS: CEFEPIME HCL 2 GM in D5W MINI-BAG PLUS 50 ML IV SCH ×2 (10:34→20:11)
--- NOTE | 2020-09-29 13:06 | IPNPDOC ---
Subjective Date Seen The patient was seen on 09/29/20. Subjective Chief Complaint/HPI Feeling well no complaints today. Hb stable. Objective Physical Examination General Exam: Positive: Alert, Cooperative, No Acute Distress Eye Exam: Positive: PERRLA, Conjunctiva & lids normal ENT Exam: Positive: Atraumatic Neck Exam: Positive: Supple Chest Exam: Positive: Clear to auscultation, Normal air movement Heart Exam: Positive: Rate Normal, Regular Rhythm, Normal S1, Normal S2; Negative: Murmurs, Rubs Abdomen Exam: Positive: Normal bowel sounds, Soft; Negative: Tenderness, Hepatospenomegaly Extremity Exam: Negative: Edema Skin Exam: Positive: Other skin issue (skin denudation over entire left lower leg with area of erythema with few bleeding spots ) Neuro Exam: Positive: Normal Speech, Strength at 5/5 X4 ext Psych Exam: Positive: Mood NL, Memory Intact, Oriented x 3 Assessment /Plan Assessment 59 y/o F with 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 She was found to be anemic with Hb of 7.1 and also had sepsis from left leg cellulitis. Sepsis secondary to left leg cellulitis iv cefepime Dr Baldwin consult appreciated. blood culture no growth till date MRSA screen negative Symptomatic Anemia Has history of chronic anemia used to be on iron, not anymore. Iron profile does show iron def with low TSAT though increased ferritin likely form chronic inflammation. transfused 3 units. If Hb does not respond appropriately to transfusion or drops again will likely get an EGD/Colonoscopy as inpatient otherwise will be done as outpatient with Dr Serrano. Discussed plan with Dr Serrano Patient takes high doses of ibuprofen daily will continue with PPI and sucralfate. Hb responded appropriately to PRBCs. YU on CKD stage 3 resolved. Baseline Cr 1.2-1.3 pt was taking PO Ibuprofen at home for left leg pain for years, was also septic on the back ground of being on diuretics. US kidneys no obstruction. Chronic left lower extremity wound / Venous stasis Venous stasis ulcer will follow Dr baldwin's recommendations for dressing PO tylenol prn for pain There have been plan to refer to a plastic surgeon. will f/u Dr Baldwin wound care recommendations. He did not think the wound was infected. arterial study and venous reflux study ordered. 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 and in 2009 due to fall and injury of the prosthetic hip started having venous stasis ulcers h/o Peripheral vascular disease with venous stasis h/o blood clot Plan/VTE VTE Prophylaxis Ordered?: No VTE Exclusion Pharmacological: Bleeding Risk VS, I&O, 24H, Fishbone Vital Signs/I&O Vital Signs Date Time Temp Pulse Resp B/P (MAP) Pulse Ox O2 Delivery O2 Flow Rate FiO2 09/29/20 09:00 16 09/29/20 08:30 Room Air 09/29/20 05:35 97.6 84 115/75 (88) 97 I&O- Last 24 Hours up to 6 AM 09/29/20 05:59 Intake Total 2050 ml Output Total 2650 ml Balance -600 ml Laboratory Data 24H LABS Laboratory Tests 2 09/29/20 05:40: Anion Gap 12, Glomerular Filtration Rate > 60.0, Calcium Level 8.6 09/29/20 05:41: Immature Granulocyte % (Auto) 0.9, Neutrophils (%) (Auto) 75.0H, Lymphocytes (%) (Auto) 12.7L, Monocytes (%) (Auto) 9.2H, Eosinophils (%) (Auto) 1.8, Basophils (%) (Auto) 0.4, Neutrophils # (Auto) 9.9H, Lymphocytes # (Auto) 1.7, Monocytes # (Auto) 1.2H, Eosinophils # (Auto) 0.2, Basophils # (Auto) 0.1, Nucleated Red Blood Cells % (auto) 0.0 CBC/BMP Laboratory Tests 09/28/20 17:58 09/29/20 05:40 09/29/20 05:41 Microbiology Microbiology 09/28/20 Gram Stain - Final, Resulted 09/28/20 Wound Culture, Resulted Pending 09/26/20 Blood Culture - Preliminary, Resulted No Growth after 48 hours. All Specime... 6/29/21 Blood Culture - Preliminary, Resulted No Growth after 48 hours. All Specime... TANIKA BOOTH MD Sep 29, 2020 13:06
--- NOTE | 2020-09-29 13:37 | REP ---
INDICATION: left lower extremity, non healing ulcer. COMPARISON: None. TECHNIQUE: Left lower extremity arterial ultrasound with Doppler FINDINGS: All numeric values represent peak systolic velocity in cm/SEC The ankle brachial index could not be calculated. 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 IMPRESSION: As above <Electronically signed by J Carlos Cobb > 09/29/20 [id number]
--- NOTE | 2020-09-29 13:50 | REP ---
INDICATION: left leg ulcer. supine and standing for venous reflux. COMPARISON: None. TECHNIQUE: Multiple ultrasonographic images of the deep venous structures of the left lower extremity were obtained from the inguinal ligament to the ankle. Venous compression techniques, color doppler imaging, and augmentation techniques were also obtained where appropriate. As per the ACR guidelines the anterior tibial vein can not be effectively evaluated. Only compression techniques in the calf on the peroneal and posterior tibial veins was attempted/performed. FINDINGS: There is no abnormal echogenic material seen within any of the visualized deep venous structures that would suggest acute thrombosis. Coaptation is unremarkable throughout. Doppler interrogation shows an expected response to respiratory variability and augmentation in the thigh. Compression techniques in the calf were unobtainable. The color flow images show what appears to be a normal vascular pattern throughout the thigh. DEEP VEIN REFLUX STUDY: Reflux was seen in the common femoral vein of 2.6 seconds duration Anterior accessory greater saphenous vein is present and reflux was noted of 2.6 seconds duration No reflux was seen in the greater saphenous vein at the saphenofemoral junction the AP dimension of which measured 6 mm No reflux was seen in the greater saphenous vein at the mid thigh the AP dimension of which measured 5.8 mm No reflux was seen in the greater saphenous vein at the knee the AP dimension of which measured 4.7 mm Reflux was seen in the proximal superficial femoral vein of 2.7 seconds duration Unmeasurable reflux was seen in the mid and distal superficial femoral vein Distal to the distal superficial femoral vein evaluation could not be performed due to a dressing in place and the patient's complaint of pain. IMPRESSION: 1. There is no ultrasonographic evidence of deep venous thrombosis involving any of the visualized deep venous structures of the left lower extremity as described above. Due to technical parameters calf vein DVT can not be ruled out. Deep vein reflux study as described above. <Electronically signed by J Carlos Cobb > 09/29/20 [id number]
[2020-09-29 14:00] VITALS: BP 127/77
[2020-09-29] MEDS: MORPHINE 2 MG/ML 1ML VIAL (J2270) IV PRN (17:07)
[2020-09-29 22:00] VITALS: BP 109/68
[2020-09-30] MEDS: NS 1,000 ML IV SCH (00:10)
[2020-09-30] MEDS: NORCO, ANEXSIA 5/325MG TABLET (HYDROcodone/ACETAMINOPHEN) PO PRN ×2 (05:13→19:36)
[2020-09-30] MEDS: LEVOTHYROXINE 88MCG TABLET (0.088 MG) PO SCH (05:13)
[2020-09-30 06:00] VITALS: BP 133/81
[2020-09-30 06:20] LABS: BASO # 0.1 10^3/uL (0.0-0.2); BASO % 0.4 % (0.0-1.0); EOS # 0.3 10^3/uL (0.0-0.5); EOS % 2.8 % (0.0-3.0); HEMATOCRIT 29.9 % (36.0-47.0); HEMOGLOBIN 9.1 g/dl (12.0-15.5); LYMPH # 1.8 10^3/uL (1.5-5.0); LYMPH % 16.1 % (24.0-44.0); MEAN CORPUSCULAR HEMOGLOBIN 25.5 pg (27.0-33.0); MEAN CORPUSCULAR HGB CONC 30.4 g/dl (32.0-36.5); MEAN CORPUSCULAR VOLUME 83.8 fl (80.0-96.0); MONO # 1.1 10^3/uL (0.0-0.8); MONO % 9.4 % (2.0-8.0); NEUTROPHILS # 7.8 10^3/uL (1.5-8.5); PLATELET COUNT, AUTOMATED 421 10^3/uL (150-450); RED BLOOD COUNT 3.57 10^6/uL (4.00-5.40); WHITE BLOOD COUNT 11.1 10^3/uL (4.0-10.0)
[2020-09-30 06:42] LABS: BLOOD UREA NITROGEN 22 MG/DL (7-18); CALCIUM LEVEL 8.4 MG/DL (8.5-10.1); CARBON DIOXIDE LEVEL 20 MEQ/L (21-32); CHLORIDE LEVEL 113 MEQ/L (98-107); CREATININE FOR GFR 0.68 MG/DL (0.55-1.30); GLOMERULAR FILTRATION RATE > 60.0 (>51); GLUCOSE, FASTING 91 MG/DL (70-100); SODIUM LEVEL 143 MEQ/L (136-145)
[2020-09-30] MEDS: SUCRALFATE SUSP 1GM/10ML UD PO SCH ×4 (07:56→21:35)
[2020-09-30] MEDS ORDERED: FUROSEMIDE 40MG/4ML VIAL (J1940) IV ONE (08:00)
[2020-09-30] MEDS: PANTOPRAZOLE 40MG VIAL (C9113 PER 1) IV SCH ×2 (09:02→21:35)
[2020-09-30] MEDS ORDERED: ONDANSETRON 4MG/2ML VIAL IV PRN (10:55)
--- NOTE | 2020-09-30 11:04 | IPNPDOC ---
Subjective Date Seen The patient was seen on 09/30/20. Subjective Chief Complaint/HPI No new issues overnight. Patient says that she cannot go home till home services are set up for dressing changes. Also wants to talk to social work about how to get dressing changes at home whether it is going to be covered by her insurance. Objective Physical Examination General Exam: Positive: Alert, Cooperative, No Acute Distress Eye Exam: Positive: PERRLA, Conjunctiva & lids normal ENT Exam: Positive: Atraumatic Neck Exam: Positive: Supple Chest Exam: Positive: Clear to auscultation, Normal air movement Heart Exam: Positive: Rate Normal, Regular Rhythm, Normal S1, Normal S2; Negative: Murmurs, Rubs Abdomen Exam: Positive: Normal bowel sounds, Soft; Negative: Tenderness, Hepatospenomegaly Extremity Exam: Positive: Edema Skin Exam: Positive: Other skin issue (circumferantial large ulcer 30cm in girth x 27 cm in height over entire left lower leg ) Neuro Exam: Positive: Normal Speech, Strength at 5/5 X4 ext Psych Exam: Positive: Mood NL, Memory Intact, Oriented x 3 Assessment /Plan Assessment 59 y/o F with 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 She was found to be anemic with Hb of 7.1 and also had sepsis from left leg cellulitis. Sepsis secondary to left leg cellulitis iv cefepime , wound cultures in progress. Dr Baldwin consult appreciated. blood culture no growth till date MRSA screen negative Symptomatic Anemia Has history of chronic anemia used to be on iron, not anymore. Iron profile does show iron def with low TSAT though increased ferritin likely form chronic inflammation. transfused 3 units. If Hb does not respond appropriately to transfusion or drops again will likely get an EGD/Colonoscopy as inpatient otherwise will be done as outpatient with Dr Serrano. Discussed plan with Dr Serrano Patient takes high doses of ibuprofen daily will continue with PPI and sucralfate. Hb responded appropriately to PRBCs. Will need referral to GI or surgery for EGD and colonoscopy as outpatient. YU on CKD stage 3 resolved. pt was taking PO Ibuprofen at home for left leg pain for years, was also septic on the back ground of being on diuretics. US kidneys no obstruction. slightly fluid overloaded will give 1 dose of lasix Chronic left lower extremity wound / Venous stasis Venous stasis ulcer will follow Dr baldwin's recommendations for dressing PO norco prn for pain will f/u Dr Baldwin wound care recommendations. He did not think the wound was infected. Arterial study could not be properly done due to dressing int he leg Venous reflux study: Reflux was seen in the common femoral vein of 2.6 seconds duration Anterior accessory greater saphenous vein is present and reflux was noted of 2.6 seconds duration Reflux was seen in the proximal superficial femoral vein of 2.7 seconds duration Unmeasurable reflux was seen in the mid and distal superficial femoral vein. Distal to the distal superficial femoral vein evaluation could not be performed due to a dressing in place and the patient's complaint of pain. HTN Was on diuretics. stopped due to hypotension and YU will resume as needed. Hypothyroidism home med Obesity supportive care H/o congenital left hip dysplasia s/p left hip replacement in 2005 and re replacement in 2009 due to fall and injury of the prosthetic hip started having venous stasis and ulcers after the hip replacements h/o Peripheral vascular disease with venous stasis and venous reflux. No DVT at present Plan/VTE VTE Prophylaxis Ordered?: No VTE Exclusion Pharmacological: Bleeding Risk VS, I&O, 24H, Fishbone Vital Signs/I&O Vital Signs Date Time Temp Pulse Resp B/P (MAP) Pulse Ox O2 Delivery O2 Flow Rate FiO2 09/30/20 06:00 97.9 86 18 133/81 (98) 96 Room Air I&O- Last 24 Hours up to 6 AM 09/30/20 06:00 Intake Total 720 ml Output Total 1800 ml Balance -1080 ml Laboratory Data 24H LABS Laboratory Tests 2 09/30/20 05:13: Immature Granulocyte % (Auto) 1.3, Neutrophils (%) (Auto) 70.0H, Lymphocytes (%) (Auto) 16.1L, Monocytes (%) (Auto) 9.4H, Eosinophils (%) (Auto) 2.8, Basophils (%) (Auto) 0.4, Neutrophils # (Auto) 7.8, Lymphocytes # (Auto) 1.8, Monocytes # (Auto) 1.1H, Eosinophils # (Auto) 0.3, Basophils # (Auto) 0.1, Nucleated Red Blood Cells % (auto) 0.0, Anion Gap 10, Glomerular Filtration Rate > 60.0, Calcium Level 8.4L CBC/BMP Laboratory Tests 09/30/20 05:13 Microbiology Microbiology 09/28/20 Gram Stain - Final, Resulted 09/28/20 Wound Culture, Resulted Pending 09/26/20 Blood Culture - Preliminary, Resulted No Growth after 72 hours. All specime... 09/26/20 Blood Culture - Preliminary, Resulted No Growth after 72 hours. All specime... TANIKA BOOTH MD Sep 30, 2020 11:04
[2020-09-30] MEDS: CEFEPIME HCL 2 GM in D5W MINI-BAG PLUS 50 ML IV SCH ×2 (11:41→21:35)
[2020-09-30] MEDS: ACETAMINOPHEN TAB 650MG DOSE (2X325MG) PO PRN (13:41)
[2020-09-30 14:00] VITALS: BP 114/67
[2020-09-30 22:00] VITALS: BP 131/79
[2020-10-01] MEDS: NORCO, ANEXSIA 5/325MG TABLET (HYDROcodone/ACETAMINOPHEN) PO PRN ×4 (03:16→22:51)
[2020-10-01 06:00] VITALS: BP 119/81
[2020-10-01] MEDS: SUCRALFATE SUSP 1GM/10ML UD PO SCH ×4 (06:30→20:11)
[2020-10-01] MEDS: LEVOTHYROXINE 88MCG TABLET (0.088 MG) PO SCH (06:30)
[2020-10-01 06:52] LABS: BASO # 0.1 10^3/uL (0.0-0.2); BASO % 0.7 % (0.0-1.0); EOS # 0.3 10^3/uL (0.0-0.5); EOS % 3.2 % (0.0-3.0); HEMATOCRIT 32.6 % (36.0-47.0); LYMPH # 1.5 10^3/uL (1.5-5.0); MEAN CORPUSCULAR HEMOGLOBIN 25.6 pg (27.0-33.0); MEAN CORPUSCULAR HGB CONC 30.7 g/dl (32.0-36.5); MEAN CORPUSCULAR VOLUME 83.4 fl (80.0-96.0); MONO # 0.9 10^3/uL (0.0-0.8); NEUTROPHILS # 5.8 10^3/uL (1.5-8.5); NEUTROPHILS % 67.4 % (36.0-66.0); PLATELET COUNT, AUTOMATED 441 10^3/uL (150-450); RED BLOOD COUNT 3.91 10^6/uL (4.00-5.40); WHITE BLOOD COUNT 8.6 10^3/uL (4.0-10.0)
[2020-10-01 07:13] LABS: BLOOD UREA NITROGEN 18 MG/DL (7-18); CALCIUM LEVEL 8.2 MG/DL (8.5-10.1); CARBON DIOXIDE LEVEL 27 MEQ/L (21-32); CHLORIDE LEVEL 108 MEQ/L (98-107); CREATININE FOR GFR 0.72 MG/DL (0.55-1.30); GLOMERULAR FILTRATION RATE > 60.0 (>51); GLUCOSE, FASTING 93 MG/DL (70-100); POTASSIUM SERUM 3.8 MEQ/L (3.5-5.1); SODIUM LEVEL 140 MEQ/L (136-145)
[2020-10-01] MEDS ORDERED: FUROSEMIDE 40MG/4ML VIAL (J1940) IV ONE (07:45)
[2020-10-01] MEDS ORDERED: MORPHINE 2 MG/ML 1ML VIAL (J2270) IV PRN (07:50)
[2020-10-01] MEDS: LevoFLOXacin 750 MG TABLET PO SCH (08:00)
[2020-10-01] MEDS: PANTOPRAZOLE 40MG VIAL (C9113 PER 1) IV SCH ×2 (08:01→20:11)
[2020-10-01 14:00] VITALS: BP 115/72
[2020-10-01 20:46] VITALS: BP 129/47
[2020-10-02 05:57] VITALS: BP 136/75
[2020-10-02] MEDS: LevoFLOXacin 750 MG TABLET PO SCH (06:00)
[2020-10-02] MEDS: LEVOTHYROXINE 88MCG TABLET (0.088 MG) PO SCH (06:00)
[2020-10-02] MEDS: ACETAMINOPHEN TAB 650MG DOSE (2X325MG) PO PRN (06:00)
[2020-10-02 06:23] LABS: BASO # 0.1 10^3/uL (0.0-0.2); BASO % 0.7 % (0.0-1.0); EOS # 0.3 10^3/uL (0.0-0.5); EOS % 2.5 % (0.0-3.0); HEMATOCRIT 33.8 % (36.0-47.0); HEMOGLOBIN 10.4 g/dl (12.0-15.5); LYMPH # 1.9 10^3/uL (1.5-5.0); LYMPH % 18.3 % (24.0-44.0); MEAN CORPUSCULAR HEMOGLOBIN 25.3 pg (27.0-33.0); MEAN CORPUSCULAR HGB CONC 30.8 g/dl (32.0-36.5); MEAN CORPUSCULAR VOLUME 82.2 fl (80.0-96.0); MONO # 1.1 10^3/uL (0.0-0.8); MONO % 10.7 % (2.0-8.0); NEUTROPHILS # 6.7 10^3/uL (1.5-8.5); NEUTROPHILS % 65.7 % (36.0-66.0); PLATELET COUNT, AUTOMATED 431 10^3/uL (150-450); RED BLOOD COUNT 4.11 10^6/uL (4.00-5.40); WHITE BLOOD COUNT 10.2 10^3/uL (4.0-10.0)
[2020-10-02 06:47] LABS: BLOOD UREA NITROGEN 17 MG/DL (7-18); CALCIUM LEVEL 8.5 MG/DL (8.5-10.1); CARBON DIOXIDE LEVEL 27 MEQ/L (21-32); CHLORIDE LEVEL 103 MEQ/L (98-107); CREATININE FOR GFR 0.74 MG/DL (0.55-1.30); GLOMERULAR FILTRATION RATE > 60.0 (>51); GLUCOSE, FASTING 90 MG/DL (70-100); POTASSIUM SERUM 3.3 MEQ/L (3.5-5.1); SODIUM LEVEL 139 MEQ/L (136-145)
[2020-10-02] MEDS ORDERED: POTASSIUM CHLORIDE 10 MEQ SR TABLET PO ONE (07:30)
[2020-10-02] MEDS: SUCRALFATE SUSP 1GM/10ML UD PO SCH ×4 (08:16→21:44)
[2020-10-02] MEDS: PANTOPRAZOLE 40MG VIAL (C9113 PER 1) IV SCH ×2 (08:17→21:44)
[2020-10-02] MEDS: NORCO, ANEXSIA 5/325MG TABLET (HYDROcodone/ACETAMINOPHEN) PO PRN ×3 (12:34→23:32)
[2020-10-02 14:00] VITALS: BP 110/68
[2020-10-02] MEDS: MORPHINE 2 MG/ML 1ML VIAL (J2270) IV PRN ×2 (14:36→15:11)
[2020-10-03 06:15] VITALS: BP 131/72
[2020-10-03] MEDS: LevoFLOXacin 750 MG TABLET PO SCH (06:36)
[2020-10-03] MEDS: NORCO, ANEXSIA 5/325MG TABLET (HYDROcodone/ACETAMINOPHEN) PO PRN ×3 (06:36→20:21)
[2020-10-03] MEDS: LEVOTHYROXINE 88MCG TABLET (0.088 MG) PO SCH (06:36)
[2020-10-03] MEDS: PANTOPRAZOLE 40MG VIAL (C9113 PER 1) IV SCH ×2 (09:05→20:20)
[2020-10-03] MEDS: SUCRALFATE SUSP 1GM/10ML UD PO SCH ×4 (09:05→20:20)
[2020-10-03] MEDS ORDERED: SUCR1ORA PO (10:14)
[2020-10-03] MEDS ORDERED: HYDR-3715 PO (10:14)
[2020-10-03] MEDS ORDERED: LEVO750T13 PO (10:14)
[2020-10-03] MEDS ORDERED: BACI1CAP PO (10:14)
[2020-10-03] MEDS ORDERED: PROT1TAB2 PO (10:14)
--- NOTE | 2020-10-03 14:15 | DSES ---
DISCHARGE SUMMARY DATE OF ADMISSION: 09/26/2020 DATE OF DISCHARGE: 10/03/2020 ENTRY LEVEL ACCOUNT REPRESENTATIVE: Dr. Thanh Ortez. PRIMARY DISCHARGE DIAGNOSES: 1. Sepsis secondary to left lower extremity cellulitis. 2. Symptomatic anemia, status post 3 units red blood cell transfusions. 3. Acute kidney injury on chronic kidney disease stage 3. 4. Chronic left lower extremity wound and venous stasis ulcer. 5. Hypertension. 6. Hypothyroidism. 7. Obesity. 8. History of congenital left hip dysplasia, status post left hip replacement in 2005 and re-replacement in 2009 due to fall and injury of the prosthetic hip with chronic venous stasis and ulcers after the hip replacement. 9. History of peripheral vascular disease with venous stasis and venous reflux. DISCHARGE MEDICATIONS: 1. Bacid one tab with meals and at bedtime. 2. Hydrocodone/Acetaminophen 5/325 one tab every 4 as needed. 3. Levaquin 750 daily. 4. Protonix 40 daily. 5. Carafate 1 gm before meals and at bedtime. 6. Acetaminophen 500 every 4 as needed. 7. Calcium with Vitamin D one tablet daily. 8. Benadryl 25 at nighttime as needed for insomnia. 9. Glucosamine one tab daily. 10. Synthroid 88 mcg daily. 11. Multivitamin one tablet daily. DISCHARGE INSTRUCTIONS: Follow up within one week with Dr. Serrano for EGD, colonoscopy to evaluate anemia. The patient is to follow up immediately with Dr. Ortez for wound care services, complete antibiotics. HOSPITAL COURSE: This is a 59-year-old with obesity, BMI 36.2, admitted on 09/26/2020 with complaints of erythema, left lower extremity edema and pain. The patient was found to have a white count of 21,000 with acute kidney injury of 2.51, GFR 21 with history of CKD 3 with baseline creatinine of 1.2 to 1.3. The patient also was found to be anemic with hemoglobin of 7.9. She was admitted for sepsis secondary to left lower extremity infected venous stasis ulcer in the setting of chronic peripheral edema. The patient was continued on IV Cefepime. Dr. Ortez was consulted for wound care management. Microbiology grew out pseudomonas E. coli and Strep dysgalactiae sensitive to Levaquin. The patient's white count improved from admission of 21,000 to discharge of 10.2. She remained afebrile with improved pain on Hydrocodone/Acetaminophen. The patient was hydrated with improvement in creatinine from admission of 2.5 to discharge of 0.74. Blood pressure was well maintained at 110 to 136 systolic with no need for blood pressure medications. The patient was given one dose of Lasix due to lower extremity edema with potassium of 3.3 on 10/02, given potassium supplement. PHYSICAL EXAM: On discharge: VITALS: Temperature 98.3, pulse 70, respiratory rate 18, blood pressure 131/72, 96% on room air. GENERAL: Awake, alert, oriented to person, place and time. HEENT: Anicteric, no jaundice. Mucous membranes moist. NECK: No JVD, thyromegaly. LUNGS: Clear to auscultation, no wheezes, rhonchi or rales. HEART: S1, S2, sinus rhythm. ABDOMEN: Obese, soft, nontender, non-distended. EXTREMITIES: Chronic venous stasis left lower extremity. Left has positive edema currently bandaged. Laboratory data, microbiology and imaging studies have been reviewed. Please see the chart. Time spent on discharge 30 minutes. MTDD
--- NOTE | 2020-10-03 16:04 | IPNPDOC ---
Date Seen The patient was seen on 10/03/20. Progress Note DISCHARGE POSTPONED AWAITING INSURANCE TO APPROVED PT'S WOUND CARE SUPPLIES. VS, I&O, 24H, Fishbone Vital Signs/I&O Vital Signs Date Time Temp Pulse Resp B/P (MAP) Pulse Ox O2 Delivery O2 Flow Rate FiO2 10/03/20 13:05 16 Room Air 10/03/20 06:15 98.3 70 131/72 (91) 96 I&O- Last 24 Hours up to 6 AM 10/03/20 06:00 Intake Total 1940 ml Output Total 550 ml Balance 1390 ml Laboratory Data Microbiology Microbiology 09/28/20 Gram Stain - Final, Complete 09/28/20 Wound Culture - Final, Complete Pseudomonas Aeruginosa Escherichia Coli Strep Dysgalactia Sp Equisim 09/26/20 Blood Culture - Final, Complete NO GROWTH AFTER 5 DAYS 09/26/20 Blood Culture - Final, Complete NO GROWTH AFTER 5 DAYS ELEAZAR GONZALEZ MD Oct 03, 2020 16:03
[2020-10-03] MEDS: ACETAMINOPHEN TAB 650MG DOSE (2X325MG) PO PRN (17:14)
[2020-10-04] MEDS: NORCO, ANEXSIA 5/325MG TABLET (HYDROcodone/ACETAMINOPHEN) PO PRN ×2 (01:16→09:04)
[2020-10-04] MEDS: LevoFLOXacin 750 MG TABLET PO SCH (06:04)
[2020-10-04] MEDS: LEVOTHYROXINE 88MCG TABLET (0.088 MG) PO SCH (06:04)
[2020-10-04 06:05] VITALS: BP 134/74
[2020-10-04] MEDS: PANTOPRAZOLE 40MG VIAL (C9113 PER 1) IV SCH (09:03)
[2020-10-04] MEDS: SUCRALFATE SUSP 1GM/10ML UD PO SCH ×2 (09:03→13:27)
[2020-10-04] MEDS: ACETAMINOPHEN TAB 650MG DOSE (2X325MG) PO PRN (13:27)
[2020-10-04] MEDS: MORPHINE 2 MG/ML 1ML VIAL (J2270) IV PRN ×2 (14:42→15:23)
== END 2020-10-04 17:30 | disposition home health service (06) | DRG 720 ==
LOC: M ED 17:33 → M MS5PR 23:32 → ENRESERV 23:32 → M MS5PR 23:33
PROVIDERS: ADMIT Internal Medicine; ATTEND General Practice
PROC: 30233N1 Transfusion of Nonautologous Red Blood Cells into Peripheral Vein, Percutaneous Approach (ICD-10-PCS; principal; 2020-09-27)
DX: A41.9 Sepsis, unspecified organism (principal); E11.51 Type 2 diabetes mellitus with diabetic peripheral angiopathy without gangrene; E11.622 Type 2 diabetes mellitus with other skin ulcer; N17.9 Acute kidney failure, unspecified; L97.928 Non-pressure chronic ulcer of unspecified part of left lower leg with other specified severity; D62 Acute posthemorrhagic anemia; N18.30 Chronic kidney disease, stage 3 unspecified; I12.9 Hypertensive chronic kidney disease with stage 1 through stage 4 chronic kidney disease, or unspecified chronic kidney disease; L03.116 Cellulitis of left lower limb; K21.9 Gastro-esophageal reflux disease without esophagitis; E03.9 Hypothyroidism, unspecified; I87.2 Venous insufficiency (chronic) (peripheral); E66.9 Obesity, unspecified; R01.1 Cardiac murmur, unspecified; D50.9 Iron deficiency anemia, unspecified; Z86.718 Personal history of other venous thrombosis and embolism; Z96.642 Presence of left artificial hip joint; Z20.822 Contact with and (suspected) exposure to COVID-19; Z79.899 Other long term (current) drug therapy; Z88.6 Allergy status to analgesic agent; Z88.8 Allergy status to other drugs, medicaments and biological substances; T39.395A Adverse effect of other nonsteroidal anti-inflammatory drugs [NSAID], initial encounter

== ENCOUNTER 2021-11-21 13:08 | Observation (INO) | payer BC ==
[~2021-11-21] VITALS: Ht 160 cm; Wt 85.3 kg
[~2021-11-21 13:08] MED LIST changes: -ELIQ5TAB PO; -TRAM50TA2 PO
[2021-11-21] MEDS ORDERED: LISI20TA33 PO (13:19)
[2021-11-21] MEDS ORDERED: SPIR1TAB34 PO (13:19)
[2021-11-21 16:10] LABS: BASO # 0.1 10^3/uL (0.0-0.2); BASO % 0.4 % (0.0-1.0); EOS # 0.3 10^3/uL (0.0-0.5); HEMATOCRIT 27.3 % (36.0-47.0); LYMPH # 2.6 10^3/uL (1.5-5.0); LYMPH % 19.2 % (24.0-44.0); MEAN CORPUSCULAR HGB CONC 29.3 g/dl (32.0-36.5); MEAN CORPUSCULAR VOLUME 75.2 fl (80.0-96.0); MONO # 1.1 10^3/uL (0.0-0.8); MONO % 7.9 % (2.0-8.0); NEUTROPHILS # 9.6 10^3/uL (1.5-8.5); NEUTROPHILS % 69.9 % (36.0-66.0); PLATELET COUNT, AUTOMATED 592 10^3/uL (150-450); RED BLOOD COUNT 3.63 10^6/uL (4.00-5.40); WHITE BLOOD COUNT 13.7 10^3/uL (4.0-10.0)
[2021-11-21 16:27] LABS: INR 1.05; PROTHROMBIN TIME 14.1 SECONDS (12.7-14.5)
[2021-11-21] MEDS ORDERED: ACETAMINOPHEN TAB 650MG DOSE (2X325MG) PO ONE (17:15)
[2021-11-21 17:25] LABS: CALCIUM LEVEL 9.4 MG/DL (8.5-10.1); CREATININE FOR GFR 1.05 MG/DL (0.55-1.30); GLOMERULAR FILTRATION RATE 57.3 (>51); POTASSIUM SERUM 4.7 MEQ/L (3.5-5.1)
[2021-11-21] MEDS ORDERED: PERCOCET 5MG/325MG TAB PO PRN ×2 (17:35)
[2021-11-21] MEDS ORDERED: HEPARIN DRIP 25,000 UNITS in IV 1 EA IV SCH (17:35)
[2021-11-21] MEDS ORDERED: ACETAMINOPHEN TAB 650MG DOSE (2X325MG) PO PRN (17:35)
[2021-11-21] MEDS ORDERED: HEPARIN SOD (PORCINE) 5000UNITS/ML 1ML VIAL/SYRINGE IV PRN (17:35)
[2021-11-21] MEDS ORDERED: HOME MED LIST COMPLETE! XX SCH (17:50)
[2021-11-21 18:01] LABS: PARTIAL THROMBOPLASTIN TIME 47.6 SECONDS (25.9-37.0)
[2021-11-21 21:20] VITALS: BP 134/75
[2021-11-21 21:30] VITALS: BP 134/75
[2021-11-22 06:00] VITALS: BP 104/62
[2021-11-22] MEDS ORDERED: LEVOTHYROXINE 88MCG TABLET (0.088 MG) PO SCH (06:00)
[2021-11-22 06:30] LABS: HEMATOCRIT 24.6 % (36.0-47.0); HEMOGLOBIN 7.3 g/dl (12.0-15.5); MEAN CORPUSCULAR HEMOGLOBIN 21.9 pg (27.0-33.0); MEAN CORPUSCULAR HGB CONC 29.7 g/dl (32.0-36.5); MEAN CORPUSCULAR VOLUME 73.7 fl (80.0-96.0); PLATELET COUNT, AUTOMATED 578 10^3/uL (150-450); RED BLOOD COUNT 3.34 10^6/uL (4.00-5.40); WHITE BLOOD COUNT 15.1 10^3/uL (4.0-10.0)
[2021-11-22 07:16] LABS: ALBUMIN 2.2 GM/DL (3.2-5.2); ALT/SGPT 13 U/L (12-78); BILIRUBIN,TOTAL 0.3 MG/DL (0.2-1.0); BLOOD UREA NITROGEN 29 MG/DL (7-18); CALCIUM LEVEL 8.8 MG/DL (8.5-10.1); CARBON DIOXIDE LEVEL 20 MEQ/L (21-32); CHLORIDE LEVEL 107 MEQ/L (98-107); CREATININE FOR GFR 0.91 MG/DL (0.55-1.30); GLOMERULAR FILTRATION RATE > 60.0 (>51); GLUCOSE, FASTING 115 MG/DL (70-100); POTASSIUM SERUM 4.8 MEQ/L (3.5-5.1); SODIUM LEVEL 136 MEQ/L (136-145); TOTAL PROTEIN 6.3 GM/DL (6.4-8.2)
[2021-11-22] MEDS ORDERED: ELIQ5TAB PO (07:41)
[2021-11-22] MEDS ORDERED: TRAM50TA2 PO (07:42)
[2021-11-22 08:43] VITALS: BP 102/58
[2021-11-22] MEDS ORDERED: SPIRONOLACTONE 25 MG TAB PO SCH (09:00)
[2021-11-22] MEDS ORDERED: MULTIVITAMINS/MINERALS THERAP 1 TAB PO SCH (09:00)
[2021-11-22] MEDS ORDERED: APIXABAN 5 MG TAB (ELIQUIS) PO SCH (09:00)
== END 2021-11-22 11:24 | disposition home or self-care (01) ==
LOC: M ED 16:08 → M MSPAV 17:34 → M ED INP 17:34 → M MSPAV 21:07
PROVIDERS: ADMIT Internal Medicine; ATTEND Internal Medicine
DX: I82.5Z2 Chronic embolism and thrombosis of unspecified deep veins of left distal lower extremity (principal); I83.223 Varicose veins of left lower extremity with both ulcer of ankle and inflammation; L97.329 Non-pressure chronic ulcer of left ankle with unspecified severity; I83.222 Varicose veins of left lower extremity with both ulcer of calf and inflammation; L97.229 Non-pressure chronic ulcer of left calf with unspecified severity; I10 Essential (primary) hypertension; E03.9 Hypothyroidism, unspecified; Q65.9 Congenital deformity of hip, unspecified; Z79.899 Other long term (current) drug therapy; Z79.890 Hormone replacement therapy; Z91.14 Patient's other noncompliance with medication regimen; Z88.8 Allergy status to other drugs, medicaments and biological substances; Z96.642 Presence of left artificial hip joint
CPT/HCPCS: 36415; 80048; 80053; 85025; 85027; 85610; 85730; 87635; 96374; 97161; 99284; J1644

== ENCOUNTER → 2021-11-21 | Outpatient (CLI) | payer BC ==
[~2021-11-21] MED LIST changes: +ACET-897 PO; +ALDA25TA4 PO; +BACI1CAP PO; +BENA25CA4 PO; +ELIQ5TAB PO; +GLUCTAB7 PO; +HYDR-3715 PO; +IBUP-1720 PO; -IBUP200T45 PO; +IBUP200T46 PO; +LEVO1TAB40 PO; +OYST500T92 PO; +PROT1TAB2 PO; +SUCR1ORA PO; +SYNT88TA2 PO; +TRAM50TA2 PO; +VITMTA PO
== END ==
LOC: M RAD 11:55
PROVIDERS: ATTEND Physician Assistant
DX: I82.402 Acute embolism and thrombosis of unspecified deep veins of left lower extremity (principal)

== ENCOUNTER → 2021-12-25 | Outpatient (CLI) | payer BC ==
[~2021-12-25] MED LIST changes: +ELIQ5TAB PO; +TRAM50TA2 PO
[2021-12-25 17:54] LABS: HEMATOCRIT 32.8 % (36.0-47.0); HEMOGLOBIN 9.1 g/dl (12.0-15.5); MEAN CORPUSCULAR HEMOGLOBIN 24.1 pg (27.0-33.0); MEAN CORPUSCULAR HGB CONC 27.7 g/dl (32.0-36.5); MEAN CORPUSCULAR VOLUME 86.8 fl (80.0-96.0); PLATELET COUNT, AUTOMATED 531 10^3/uL (150-450); RED BLOOD COUNT 3.78 10^6/uL (4.00-5.40); WHITE BLOOD COUNT 8.7 10^3/uL (4.0-10.0)
[2021-12-25 18:08] LABS: HEMOGLOBIN A1c 5.4 %
[2021-12-25 18:36] LABS: ALBUMIN 2.5 GM/DL (3.2-5.2); BLOOD UREA NITROGEN 17 MG/DL (7-18); CARBON DIOXIDE LEVEL 25 MEQ/L (21-32); CHLORIDE LEVEL 109 MEQ/L (98-107); CHOLESTEROL LEVEL 167 MG/DL (<200); CHOLESTEROL RISK RATIO 4.073 (<5); CREATININE FOR GFR 0.92 MG/DL (0.55-1.30); FERRITIN 76 NG/ML (8-252); FREE T4 0.85 NG/DL (0.76-1.46); GLOMERULAR FILTRATION RATE > 60.0 (>51); GLUCOSE, FASTING 89 MG/DL (70-100); HDL CHOLESTEROL 41 MG/DL (>40); LDL CHOLESTEROL 77 MG/DL (<100); NON-HDL-C 126 MG/DL; PHOSPHORUS LEVEL 3.5 MG/DL (2.5-4.9); SODIUM LEVEL 141 MEQ/L (136-145); TRIGLYCERIDES LEVEL 244 MG/DL (<150)
[2021-12-25 20:53] LABS: HEPATITIS C VIRUS ABY INDEX < 0.0 INDEX (<0.8)
== END ==
LOC: M PLALAB 14:53
PROVIDERS: ATTEND Family Medicine
DX: D50.9 Iron deficiency anemia, unspecified (principal)

== ENCOUNTER → 2022-02-07 | Outpatient (REF) | payer BC | LOC: M SFHCWOUN 12:20 | PROVIDERS: ATTEND Physician Assistant | DX: I87.312 Chronic venous hypertension (idiopathic) with ulcer of left lower extremity (principal); L97.822 Non-pressure chronic ulcer of other part of left lower leg with fat layer exposed ==

== ENCOUNTER → 2022-02-14 | Outpatient (CLI) | payer BC | LOC: M RAD 13:37 | PROVIDERS: ATTEND Physician Assistant | DX: I87.312 Chronic venous hypertension (idiopathic) with ulcer of left lower extremity (principal) ==

== ENCOUNTER → 2022-02-14 | Outpatient (CLI) | payer BC | LOC: M RAD 13:39 | PROVIDERS: ATTEND Family Medicine | DX: I82.412 Acute embolism and thrombosis of left femoral vein (principal) ==

== ENCOUNTER 2023-03-04 11:13 | Inpatient (IN) | payer BC ==
[2023-03-04] VITALS (11 sets, daily range): BP systolic 105–141; BP diastolic 59–81; TEMP 97.2–98.2; O2SAT 95–98
[~2023-03-04] VITALS: Ht 160 cm; Wt 87.7 kg
[~2023-03-04 11:13] MED LIST changes: +ASPI81TA26 PO; +FERR1TAB8 PO; +GLUC1CAP10 PO; -K-TA10TA PO; +OMEP1CAP73 PO; +POTA-164 PO; +VITA-243 PO; +ceFAZolin SOD 2 GM in IV 1 EA IV ONE
[2023-03-04] MEDS ORDERED: LIDOCAINE 2% 100MG/5ML SDV (FOR ANES.) As Ordered ONE (11:31)
[2023-03-04] MEDS ORDERED: ONDANSETRON 4MG 2ML VIAL As Ordered ONE (11:31)
[2023-03-04] MEDS ORDERED: propofoL 200 MG/20 ML VIAL As Ordered ONE (11:31)
[2023-03-04] MEDS ORDERED: fentaNYL 250 MCG/5 ML INJECTION As Ordered ONE (11:31)
[2023-03-04] MEDS ORDERED: ROCURONIUM BROMIDE 50MG/5ML VIAL As Ordered ONE (11:31)
[2023-03-04] MEDS ORDERED: MIDAZOLAM INJ 2MG/2ML VIAL As Ordered ONE (11:32)
[2023-03-04] MEDS ORDERED: LR 1,000 ML IV SCH (11:55)
[2023-03-04 13:49] LABS: HEMATOCRIT 30.9 % (36.0-47.0); HEMOGLOBIN 8.4 g/dl (12.0-15.5); MEAN CORPUSCULAR HGB CONC 27.2 g/dl (32.0-36.5); MEAN CORPUSCULAR VOLUME 81.1 fl (80.0-96.0); PLATELET COUNT, AUTOMATED 681 10^3/uL (150-450); RED BLOOD COUNT 3.81 10^6/uL (4.00-5.40)
[2023-03-04] MEDS ORDERED: GENTAMICIN SULF 80MG/2ML VIAL As Ordered ONE (14:05)
[2023-03-04] MEDS ORDERED: dexmedeTOMIDine (4MCG/ML)200MCG/50ML BTL (PRECEDEX) As Ordered ONE (14:54)
[2023-03-04] MEDS ORDERED: PHENYLephrine 500MCG 5ML (100MCG/ML) SYRINGE As Ordered ONE (15:03)
[2023-03-04] MEDS ORDERED: ACETAMINOPHEN 1000MG 100ML IV BAG As Ordered ONE (15:18)
[2023-03-04] MEDS ORDERED: oxyCODONE 5MG TAB PO PRN (16:30)
[2023-03-04] MEDS ORDERED: ONDANSETRON 4MG 2ML VIAL IV PRN (16:30)
[2023-03-04] MEDS: fentaNYL 100 MCG/2 ML INJECTION IV PRN ×3 (16:34→17:13)
[2023-03-04] MEDS ORDERED: traMADol 50 MG TAB PO PRN (17:10)
[2023-03-04] MEDS ORDERED: TRAM50TA2 PO (19:13)
[2023-03-04] MEDS ORDERED: HOME MED LIST COMPLETE! XX SCH (19:15)
[2023-03-05 00:14] VITALS: BP 118/65; TEMP 98.1; O2SAT 97
[2023-03-05] MEDS: ceFAZolin SOD 1 GM in D5W MINI-BAG PLUS 50 ML IV SCH ×4 (00:18→21:56)
[2023-03-05] MEDS: HEPARIN SOD (PORCINE) 5000UNITS/ML 1ML VIAL/SYRINGE SC SCH ×4 (00:19→21:23)
[2023-03-05 01:07] VITALS: BP 119/66; TEMP 95; O2SAT 95
[2023-03-05 02:08] LABS: ALBUMIN 2.3 G/DL (3.2-5.2); ALKALINE PHOSPHATASE 52 U/L (46-116); ALT/SGPT 14 U/L (7.0-40); AST/SGOT 23 U/L (<34); BILIRUBIN,TOTAL 0.5 MG/DL (0.3-1.2); BLOOD UREA NITROGEN 28 MG/DL (9-23); CALCIUM LEVEL 8.3 MG/DL (8.3-10.6); CARBON DIOXIDE LEVEL 13 MMOL/L (20-31); CHLORIDE LEVEL 112 MMOL/L (98-107); CREATININE FOR GFR 0.82 MG/DL (0.55-1.30); GLOMERULAR FILTRATION RATE > 60.0 (>45); GLUCOSE, FASTING 134 MG/DL (74-106); POTASSIUM SERUM 4.7 MMOL/L (3.5-5.1); SODIUM LEVEL 139 MMOL/L (136-145); TOTAL IRON BINDING CAPACITY 191 UG/DL (250-425); TOTAL PROTEIN 6.1 G/DL (5.7-8.2)
[2023-03-05 02:09] LABS: IRON (FE) 72 UG/DL (50-170); PERCENT SATURATION 37.7 % (13.2-45.0)
[2023-03-05 02:10] LABS: FOLATE > 24.0 NG/ML (>5.4)
[2023-03-05 02:11] LABS: VITAMIN B12 LEVEL 1465 PG/ML (211-911)
[2023-03-05 03:17] LABS: PROCALCITONIN 20.47 ng/ml
[2023-03-05 06:31] VITALS: BP 117/67; TEMP 97.3; O2SAT 97
[2023-03-05] MEDS: LEVOTHYROXINE 88MCG TABLET (0.088 MG) PO SCH (06:42)
[2023-03-05 06:45] LABS: BASO % 0.2 % (0.0-1.0); HEMATOCRIT 29.7 % (36.0-47.0); LYMPH # 1.5 10^3/uL (1.5-5.0); LYMPH % 13.9 % (24.0-44.0); MEAN CORPUSCULAR HEMOGLOBIN 24.3 pg (27.0-33.0); MEAN CORPUSCULAR HGB CONC 30.3 g/dl (32.0-36.5); MEAN CORPUSCULAR VOLUME 80.3 fl (80.0-96.0); MONO # 0.6 10^3/uL (0.0-0.8); NEUTROPHILS # 8.4 10^3/uL (1.5-8.5); NEUTROPHILS % 79.5 % (36.0-66.0); WHITE BLOOD COUNT 10.5 10^3/uL (4.0-10.0)
[2023-03-05 06:49] LABS: PLATELET COUNT, AUTOMATED 474 10^3/uL (150-450)
[2023-03-05 07:17] LABS: BLOOD UREA NITROGEN 27 MG/DL (9-23); CALCIUM LEVEL 8.4 MG/DL (8.3-10.6); CARBON DIOXIDE LEVEL 13 MMOL/L (20-31); CHLORIDE LEVEL 112 MMOL/L (98-107); CREATININE FOR GFR 0.79 MG/DL (0.55-1.30); GLOMERULAR FILTRATION RATE > 60.0 (>45); GLUCOSE, FASTING 88 MG/DL (74-106); POTASSIUM SERUM 4.4 MMOL/L (3.5-5.1); SODIUM LEVEL 139 MMOL/L (136-145)
[2023-03-05 07:19] LABS: THYROID STIMULATING HORMONE 0.152 uIU/ML (0.55-4.78)
[2023-03-05 08:54] LABS: ABG BASE EXCESS -10.6 (-2.0-2.0); ABG O2 SATURATION 97.7 % (95.0-99.0); ABG PARTIAL PRESSURE CO2 27.1 mmHg (35.0-45.0); ABG PARTIAL PRESSURE O2 92.9 mmHg (75.0-100.0); ABG TOTAL CO2 14.8 MMOL/L (23.0-31.0); ABG pH (ARTERIAL) 7.331 UNITS (7.350-7.450)
[2023-03-05] MEDS: SPIRONOLACTONE 25 MG TAB PO SCH (09:37)
[2023-03-05] MEDS: OMEPRAZOLE 20MG CAP PO SCH (09:38)
[2023-03-05] MEDS: hydroCHLOROthiazide 12.5 MG CAPSULE PO SCH (09:38)
[2023-03-05 10:10] VITALS: BP 121/72; TEMP 97.5; O2SAT 97
[2023-03-05] MEDS ORDERED: ONDANSETRON 4MG 2ML VIAL IV PRN (11:55)
[2023-03-05] MEDS: SODIUM BICARBONATE 100 MEQ in D5W 1,000 ML IV SCH ×2 (12:22→23:50)
[2023-03-05] MEDS: ACETAMINOPHEN 500 MG TAB PO PRN ×2 (12:22→19:42)
[2023-03-05 14:15] VITALS: BP 115/65; TEMP 97.7; O2SAT 97
[2023-03-05 16:18] LABS: BLOOD UREA NITROGEN 26 MG/DL (9-23); CALCIUM LEVEL 7.8 MG/DL (8.3-10.6); CARBON DIOXIDE LEVEL 18 MMOL/L (20-31); CHLORIDE LEVEL 110 MMOL/L (98-107); CREATININE FOR GFR 0.86 MG/DL (0.55-1.30); GLOMERULAR FILTRATION RATE > 60.0 (>45); GLUCOSE, FASTING 118 MG/DL (74-106); SODIUM LEVEL 139 MMOL/L (136-145)
[2023-03-05 21:00] LABS: BLOOD UREA NITROGEN 23 MG/DL (9-23); CALCIUM LEVEL 8.1 MG/DL (8.3-10.6); CARBON DIOXIDE LEVEL 19 MMOL/L (20-31); CHLORIDE LEVEL 110 MMOL/L (98-107); CREATININE FOR GFR 0.94 MG/DL (0.55-1.30); GLOMERULAR FILTRATION RATE > 60.0 (>45); GLUCOSE, FASTING 124 MG/DL (74-106); POTASSIUM SERUM 3.7 MMOL/L (3.5-5.1); SODIUM LEVEL 141 MMOL/L (136-145)
[2023-03-05 21:57] VITALS: BP 112/63; TEMP 97.3; O2SAT 96
[2023-03-06] MEDS: ACETAMINOPHEN 500 MG TAB PO PRN ×3 (05:01→17:48)
[2023-03-06] MEDS: HEPARIN SOD (PORCINE) 5000UNITS/ML 1ML VIAL/SYRINGE SC SCH ×3 (05:01→22:03)
[2023-03-06] MEDS: LEVOTHYROXINE 88MCG TABLET (0.088 MG) PO SCH (05:01)
[2023-03-06] MEDS: ceFAZolin SOD 1 GM in D5W MINI-BAG PLUS 50 ML IV SCH (06:07)
[2023-03-06 06:25] LABS: BASO % 0.3 % (0.0-1.0); EOS # 0.1 10^3/uL (0.0-0.5); EOS % 0.9 % (0.0-3.0); HEMATOCRIT 27.5 % (36.0-47.0); HEMOGLOBIN 8.4 g/dl (12.0-15.5); LYMPH # 2.1 10^3/uL (1.5-5.0); LYMPH % 24.2 % (24.0-44.0); MEAN CORPUSCULAR HEMOGLOBIN 24.4 pg (27.0-33.0); MEAN CORPUSCULAR HGB CONC 30.5 g/dl (32.0-36.5); MEAN CORPUSCULAR VOLUME 79.9 fl (80.0-96.0); MONO # 0.8 10^3/uL (0.0-0.8); MONO % 8.9 % (2.0-8.0); NEUTROPHILS # 5.7 10^3/uL (1.5-8.5); NEUTROPHILS % 65.2 % (36.0-66.0); PLATELET COUNT, AUTOMATED 385 10^3/uL (150-450); RED BLOOD COUNT 3.44 10^6/uL (4.00-5.40); WHITE BLOOD COUNT 8.8 10^3/uL (4.0-10.0)
[2023-03-06 06:32] VITALS: BP 114/65; TEMP 97.2; O2SAT 96
[2023-03-06 06:52] LABS: BLOOD UREA NITROGEN 21 MG/DL (9-23); CARBON DIOXIDE LEVEL 24 MMOL/L (20-31); CHLORIDE LEVEL 102 MMOL/L (98-107); CREATININE FOR GFR 0.73 MG/DL (0.55-1.30); GLOMERULAR FILTRATION RATE > 60.0 (>45); GLUCOSE, FASTING 108 MG/DL (74-106); POTASSIUM SERUM 3.7 MMOL/L (3.5-5.1); SODIUM LEVEL 138 MMOL/L (136-145)
[2023-03-06] MEDS: OMEPRAZOLE 20MG CAP PO SCH (08:41)
[2023-03-06 08:45] VITALS: BP 102/56
[2023-03-06] MEDS: SPIRONOLACTONE 25 MG TAB PO SCH (08:55)
[2023-03-06] MEDS: hydroCHLOROthiazide 12.5 MG CAPSULE PO SCH (08:56)
[2023-03-06] MEDS: LACTOBACILLUS ACIDOPHILUS CAP (BACID) PO SCH (11:37)
[2023-03-06] MEDS: CEPHALEXIN 500 MG CAP PO SCH ×2 (11:38→20:18)
[2023-03-06 21:06] VITALS: BP 115/71; TEMP 97.2; O2SAT 96
[2023-03-06] MEDS ORDERED: ceFAZolin 1GM VIAL IM SCH (23:15)
[2023-03-07] MEDS: ceFAZolin SOD 1 GM in D5W MINI-BAG PLUS 50 ML IV SCH ×4 (00:09→23:58)
[2023-03-07] MEDS: ACETAMINOPHEN 500 MG TAB PO PRN ×4 (00:10→23:07)
[2023-03-07 01:21] VITALS: BP 115/56; TEMP 97.2; O2SAT 96
[2023-03-07] MEDS: HEPARIN SOD (PORCINE) 5000UNITS/ML 1ML VIAL/SYRINGE SC SCH ×3 (05:41→21:43)
[2023-03-07] MEDS: LEVOTHYROXINE 88MCG TABLET (0.088 MG) PO SCH (05:41)
[2023-03-07 06:20] VITALS: BP 123/72; TEMP 97.9; O2SAT 96
[2023-03-07 06:25] LABS: BASO % 0.4 % (0.0-1.0); EOS # 0.1 10^3/uL (0.0-0.5); EOS % 0.9 % (0.0-3.0); HEMATOCRIT 28.3 % (36.0-47.0); HEMOGLOBIN 8.8 g/dl (12.0-15.5); LYMPH # 2.3 10^3/uL (1.5-5.0); LYMPH % 28.9 % (24.0-44.0); MEAN CORPUSCULAR HEMOGLOBIN 24.6 pg (27.0-33.0); MEAN CORPUSCULAR HGB CONC 31.1 g/dl (32.0-36.5); MEAN CORPUSCULAR VOLUME 79.3 fl (80.0-96.0); MONO # 0.8 10^3/uL (0.0-0.8); MONO % 10.3 % (2.0-8.0); NEUTROPHILS # 4.8 10^3/uL (1.5-8.5); PLATELET COUNT, AUTOMATED 394 10^3/uL (150-450); RED BLOOD COUNT 3.57 10^6/uL (4.00-5.40); WHITE BLOOD COUNT 8.1 10^3/uL (4.0-10.0)
[2023-03-07 06:35] LABS: BLOOD UREA NITROGEN 15 MG/DL (9-23); CALCIUM LEVEL 7.9 MG/DL (8.3-10.6); CARBON DIOXIDE LEVEL 28 MMOL/L (20-31); CHLORIDE LEVEL 101 MMOL/L (98-107); CREATININE FOR GFR 0.57 MG/DL (0.55-1.30); GLOMERULAR FILTRATION RATE > 60.0 (>45); GLUCOSE, FASTING 94 MG/DL (74-106); POTASSIUM SERUM 3.4 MMOL/L (3.5-5.1); SODIUM LEVEL 138 MMOL/L (136-145)
[2023-03-07 07:43] LABS: MAGNESIUM LEVEL 1.4 MG/DL (1.8-2.4)
[2023-03-07] MEDS ORDERED: POTASSIUM CHLORIDE 10% LIQ 20MEQ/15ML UDC PO ONE (08:00)
[2023-03-07] MEDS: SPIRONOLACTONE 25 MG TAB PO SCH (08:19)
[2023-03-07] MEDS: LACTOBACILLUS ACIDOPHILUS CAP (BACID) PO SCH (08:20)
[2023-03-07] MEDS: OMEPRAZOLE 20MG CAP PO SCH (08:20)
[2023-03-07] MEDS: hydroCHLOROthiazide 12.5 MG CAPSULE PO SCH (08:43)
[2023-03-07 14:22] VITALS: BP 112/67; TEMP 98.2; O2SAT 94
[2023-03-07 18:00] VITALS: BP 120/76; TEMP 98.8; O2SAT 96
[2023-03-07 21:17] VITALS: BP 132/82; TEMP 97.1; O2SAT 96
[2023-03-08] MEDS: ACETAMINOPHEN 500 MG TAB PO PRN ×3 (06:21→21:36)
[2023-03-08] MEDS: LEVOTHYROXINE 88MCG TABLET (0.088 MG) PO SCH (06:21)
[2023-03-08] MEDS: HEPARIN SOD (PORCINE) 5000UNITS/ML 1ML VIAL/SYRINGE SC SCH ×3 (06:22→21:35)
[2023-03-08 06:28] VITALS: BP 103/63; TEMP 98.1; O2SAT 96
[2023-03-08 07:56] LABS: BASO % 0.4 % (0.0-1.0); EOS # 0.1 10^3/uL (0.0-0.5); EOS % 0.9 % (0.0-3.0); HEMATOCRIT 30.8 % (36.0-47.0); HEMOGLOBIN 9.1 g/dl (12.0-15.5); LYMPH % 26.1 % (24.0-44.0); MEAN CORPUSCULAR HEMOGLOBIN 24.3 pg (27.0-33.0); MEAN CORPUSCULAR HGB CONC 29.5 g/dl (32.0-36.5); MEAN CORPUSCULAR VOLUME 82.1 fl (80.0-96.0); MONO # 0.8 10^3/uL (0.0-0.8); NEUTROPHILS # 4.6 10^3/uL (1.5-8.5); NEUTROPHILS % 62.1 % (36.0-66.0); PLATELET COUNT, AUTOMATED 380 10^3/uL (150-450); RED BLOOD COUNT 3.75 10^6/uL (4.00-5.40); WHITE BLOOD COUNT 7.5 10^3/uL (4.0-10.0)
[2023-03-08 08:00] LABS: BLOOD UREA NITROGEN 15 MG/DL (9-23); CALCIUM LEVEL 8.4 MG/DL (8.3-10.6); CARBON DIOXIDE LEVEL 28 MMOL/L (20-31); CHLORIDE LEVEL 103 MMOL/L (98-107); CREATININE FOR GFR 0.59 MG/DL (0.55-1.30); GLOMERULAR FILTRATION RATE > 60.0 (>45); GLUCOSE, FASTING 102 MG/DL (74-106); POTASSIUM SERUM 3.4 MMOL/L (3.5-5.1); SODIUM LEVEL 140 MMOL/L (136-145)
[2023-03-08] MEDS: ceFAZolin SOD 1 GM in D5W MINI-BAG PLUS 50 ML IV SCH ×2 (08:46→15:19)
[2023-03-08] MEDS: LACTOBACILLUS ACIDOPHILUS CAP (BACID) PO SCH (08:46)
[2023-03-08] MEDS: OMEPRAZOLE 20MG CAP PO SCH (08:46)
[2023-03-08] MEDS: SPIRONOLACTONE 25 MG TAB PO SCH (08:46)
[2023-03-08] MEDS: hydroCHLOROthiazide 12.5 MG CAPSULE PO SCH (08:46)
[2023-03-08 10:18] VITALS: BP 110/66; TEMP 98.1; O2SAT 96
[2023-03-08] MEDS ORDERED: POTASSIUM CHLORIDE 10MEQ SR TABLET PO ONE (13:00)
[2023-03-08 14:00] VITALS: BP 92/52; TEMP 97.7; O2SAT 95
[2023-03-08 16:18] LABS: C REACTIVE PROTEIN QUANTITATIV 2.1 MG/DL (<1.0)
[2023-03-08 16:27] LABS: PROCALCITONIN 1.33 ng/ml
[2023-03-08 21:45] VITALS: BP 120/65; TEMP 98.4; O2SAT 94
[2023-03-09] VITALS (7 sets, daily range): BP systolic 95–137; BP diastolic 53–78; TEMP 97–98.1; O2SAT 94–99
[2023-03-09] MEDS: ceFAZolin SOD 1 GM in D5W MINI-BAG PLUS 50 ML IV SCH ×3 (00:29→14:59)
[2023-03-09] MEDS: HEPARIN SOD (PORCINE) 5000UNITS/ML 1ML VIAL/SYRINGE SC SCH ×3 (05:48→21:56)
[2023-03-09] MEDS: LEVOTHYROXINE 88MCG TABLET (0.088 MG) PO SCH (05:48)
[2023-03-09 07:46] LABS: BASO # 0.1 10^3/uL (0.0-0.2); BASO % 0.6 % (0.0-1.0); EOS # 0.1 10^3/uL (0.0-0.5); EOS % 1.6 % (0.0-3.0); HEMATOCRIT 32.4 % (36.0-47.0); HEMOGLOBIN 9.3 g/dl (12.0-15.5); LYMPH # 2.5 10^3/uL (1.5-5.0); LYMPH % 27.8 % (24.0-44.0); MEAN CORPUSCULAR HEMOGLOBIN 23.9 pg (27.0-33.0); MEAN CORPUSCULAR HGB CONC 28.7 g/dl (32.0-36.5); MEAN CORPUSCULAR VOLUME 83.3 fl (80.0-96.0); MONO % 11.2 % (2.0-8.0); NEUTROPHILS # 5.2 10^3/uL (1.5-8.5); PLATELET COUNT, AUTOMATED 411 10^3/uL (150-450); RED BLOOD COUNT 3.89 10^6/uL (4.00-5.40)
[2023-03-09 08:04] LABS: BLOOD UREA NITROGEN 18 MG/DL (9-23); CARBON DIOXIDE LEVEL 30 MMOL/L (20-31); CHLORIDE LEVEL 106 MMOL/L (98-107); CREATININE FOR GFR 0.75 MG/DL (0.55-1.30); GLOMERULAR FILTRATION RATE > 60.0 (>45); GLUCOSE, FASTING 96 MG/DL (74-106); POTASSIUM SERUM 3.6 MMOL/L (3.5-5.1); SODIUM LEVEL 146 MMOL/L (136-145)
[2023-03-09] MEDS: SPIRONOLACTONE 25 MG TAB PO SCH (08:25)
[2023-03-09] MEDS: LACTOBACILLUS ACIDOPHILUS CAP (BACID) PO SCH (08:25)
[2023-03-09] MEDS: OMEPRAZOLE 20MG CAP PO SCH (08:26)
[2023-03-09] MEDS: hydroCHLOROthiazide 12.5 MG CAPSULE PO SCH (08:26)
[2023-03-09] MEDS: POTASSIUM CHLORIDE 10MEQ SR TABLET PO SCH (08:26)
[2023-03-09] MEDS: ACETAMINOPHEN 500 MG TAB PO PRN ×2 (08:27→14:59)
[2023-03-10] VITALS (7 sets, daily range): BP systolic 106–114; BP diastolic 52–70; TEMP 97.3–98.1; O2SAT 95–97
[2023-03-10] MEDS: ceFAZolin SOD 1 GM in D5W MINI-BAG PLUS 50 ML IV SCH ×3 (00:15→15:26)
[2023-03-10] MEDS: LEVOTHYROXINE 88MCG TABLET (0.088 MG) PO SCH (06:20)
[2023-03-10] MEDS: HEPARIN SOD (PORCINE) 5000UNITS/ML 1ML VIAL/SYRINGE SC SCH ×3 (06:20→21:21)
[2023-03-10] MEDS: ACETAMINOPHEN 500 MG TAB PO PRN ×2 (06:21→20:31)
[2023-03-10 06:49] LABS: BASO # 0.1 10^3/uL (0.0-0.2); BASO % 0.8 % (0.0-1.0); EOS # 0.4 10^3/uL (0.0-0.5); EOS % 4.4 % (0.0-3.0); HEMATOCRIT 34.1 % (36.0-47.0); HEMOGLOBIN 9.8 g/dl (12.0-15.5); LYMPH # 1.9 10^3/uL (1.5-5.0); LYMPH % 20.8 % (24.0-44.0); MEAN CORPUSCULAR HEMOGLOBIN 24.1 pg (27.0-33.0); MEAN CORPUSCULAR HGB CONC 28.7 g/dl (32.0-36.5); MEAN CORPUSCULAR VOLUME 83.8 fl (80.0-96.0); MONO % 10.9 % (2.0-8.0); NEUTROPHILS # 5.7 10^3/uL (1.5-8.5); NEUTROPHILS % 61.9 % (36.0-66.0); PLATELET COUNT, AUTOMATED 365 10^3/uL (150-450); RED BLOOD COUNT 4.07 10^6/uL (4.00-5.40); WHITE BLOOD COUNT 9.2 10^3/uL (4.0-10.0)
[2023-03-10 07:20] LABS: BLOOD UREA NITROGEN 22 MG/DL (9-23); CALCIUM LEVEL 8.4 MG/DL (8.3-10.6); CARBON DIOXIDE LEVEL 30 MMOL/L (20-31); CHLORIDE LEVEL 102 MMOL/L (98-107); CREATININE FOR GFR 0.74 MG/DL (0.55-1.30); GLOMERULAR FILTRATION RATE > 60.0 (>45); GLUCOSE, FASTING 98 MG/DL (74-106); POTASSIUM SERUM 3.7 MMOL/L (3.5-5.1); SODIUM LEVEL 141 MMOL/L (136-145)
[2023-03-10] MEDS: LACTOBACILLUS ACIDOPHILUS CAP (BACID) PO SCH (08:17)
[2023-03-10] MEDS: OMEPRAZOLE 20MG CAP PO SCH (08:17)
[2023-03-10] MEDS: POTASSIUM CHLORIDE 10MEQ SR TABLET PO SCH (08:17)
[2023-03-10] MEDS: hydroCHLOROthiazide 12.5 MG CAPSULE PO SCH (08:20)
[2023-03-10] MEDS: SPIRONOLACTONE 25 MG TAB PO SCH (08:21)
[2023-03-11] MEDS: ceFAZolin SOD 1 GM in D5W MINI-BAG PLUS 50 ML IV SCH ×2 (00:52→09:35)
[2023-03-11 02:03] VITALS: BP 111/59; TEMP 98.1; O2SAT 96
[2023-03-11] MEDS: LEVOTHYROXINE 88MCG TABLET (0.088 MG) PO SCH (05:19)
[2023-03-11] MEDS: HEPARIN SOD (PORCINE) 5000UNITS/ML 1ML VIAL/SYRINGE SC SCH (05:20)
[2023-03-11 06:18] LABS: BASO # 0.1 10^3/uL (0.0-0.2); BASO % 0.6 % (0.0-1.0); EOS # 0.4 10^3/uL (0.0-0.5); EOS % 4.3 % (0.0-3.0); HEMATOCRIT 31.5 % (36.0-47.0); HEMOGLOBIN 9.1 g/dl (12.0-15.5); LYMPH # 2.3 10^3/uL (1.5-5.0); LYMPH % 23.3 % (24.0-44.0); MEAN CORPUSCULAR HEMOGLOBIN 24.5 pg (27.0-33.0); MEAN CORPUSCULAR HGB CONC 28.9 g/dl (32.0-36.5); MEAN CORPUSCULAR VOLUME 84.7 fl (80.0-96.0); MONO # 1.1 10^3/uL (0.0-0.8); NEUTROPHILS % 59.8 % (36.0-66.0); PLATELET COUNT, AUTOMATED 336 10^3/uL (150-450); RED BLOOD COUNT 3.72 10^6/uL (4.00-5.40)
[2023-03-11 06:33] VITALS: BP 126/76; TEMP 97; O2SAT 97
[2023-03-11 06:39] LABS: BLOOD UREA NITROGEN 25 MG/DL (9-23); CALCIUM LEVEL 8.4 MG/DL (8.3-10.6); CARBON DIOXIDE LEVEL 27 MMOL/L (20-31); CHLORIDE LEVEL 103 MMOL/L (98-107); CREATININE FOR GFR 0.68 MG/DL (0.55-1.30); GLOMERULAR FILTRATION RATE > 60.0 (>45); GLUCOSE, FASTING 92 MG/DL (74-106); POTASSIUM SERUM 4.3 MMOL/L (3.5-5.1); SODIUM LEVEL 141 MMOL/L (136-145)
[2023-03-11] MEDS: SPIRONOLACTONE 25 MG TAB PO SCH (09:00)
[2023-03-11] MEDS: POTASSIUM CHLORIDE 10MEQ SR TABLET PO SCH (09:36)
[2023-03-11] MEDS: OMEPRAZOLE 20MG CAP PO SCH (09:36)
[2023-03-11] MEDS: LACTOBACILLUS ACIDOPHILUS CAP (BACID) PO SCH (09:36)
[2023-03-11] MEDS: hydroCHLOROthiazide 12.5 MG CAPSULE PO SCH (09:38)
[2023-03-11] MEDS: ACETAMINOPHEN 500 MG TAB PO PRN (10:11)
[2023-03-11] MEDS ORDERED: TRAM50TA2 PO (14:12)
== END 2023-03-11 14:55 | disposition home health service (06) | DRG 180 ==
LOC: M SDC 11:13 → M MS5PR 11:14 → OBSVTOIN 17:33
PROVIDERS: ADMIT Internal Medicine; ATTEND Student in an Organized Health Care Education/Training Program
PROC: 30233N1 Transfusion of Nonautologous Red Blood Cells into Peripheral Vein, Percutaneous Approach (ICD-10-PCS; 2023-03-04)
PROC: 0HR Skin and Breast, Replacement (ICD-10-PCS; principal; 2023-03-04 12:50)
DX: I83.028 Varicose veins of left lower extremity with ulcer other part of lower leg (principal); E87.20 Acidosis, unspecified; L97.828 Non-pressure chronic ulcer of other part of left lower leg with other specified severity; D62 Acute posthemorrhagic anemia; D64.9 Anemia, unspecified; I10 Essential (primary) hypertension; E87.6 Hypokalemia; E03.9 Hypothyroidism, unspecified; K21.9 Gastro-esophageal reflux disease without esophagitis; Z86.718 Personal history of other venous thrombosis and embolism; Z96.642 Presence of left artificial hip joint; Z79.82 Long term (current) use of aspirin; Z79.890 Hormone replacement therapy; Z79.899 Other long term (current) drug therapy

== ENCOUNTER → 2023-04-01 | Outpatient (CLI) | payer BC ==
[~2023-04-01] MED LIST changes: -ceFAZolin SOD 2 GM in IV 1 EA IV ONE
[2023-04-01 16:38] LABS: BASO # 0.1 10^3/uL (0.0-0.2); BASO % 0.9 % (0.0-1.0); EOS # 0.2 10^3/uL (0.0-0.5); EOS % 3.2 % (0.0-3.0); HEMATOCRIT 38.5 % (36.0-47.0); HEMOGLOBIN 11.1 g/dl (12.0-15.5); LYMPH # 1.6 10^3/uL (1.5-5.0); LYMPH % 23.6 % (24.0-44.0); MEAN CORPUSCULAR HEMOGLOBIN 25.3 pg (27.0-33.0); MEAN CORPUSCULAR HGB CONC 28.8 g/dl (32.0-36.5); MEAN CORPUSCULAR VOLUME 87.7 fl (80.0-96.0); MONO # 0.8 10^3/uL (0.0-0.8); MONO % 12.3 % (2.0-8.0); NEUTROPHILS # 3.9 10^3/uL (1.5-8.5); NEUTROPHILS % 59.5 % (36.0-66.0); PLATELET COUNT, AUTOMATED 336 10^3/uL (150-450); RED BLOOD COUNT 4.39 10^6/uL (4.00-5.40); WHITE BLOOD COUNT 6.6 10^3/uL (4.0-10.0)
[2023-04-01 17:03] LABS: BLOOD UREA NITROGEN 19 MG/DL (9-23); CALCIUM LEVEL 9.5 MG/DL (8.3-10.6); CARBON DIOXIDE LEVEL 26 MMOL/L (20-31); CHLORIDE LEVEL 107 MMOL/L (98-107); CREATININE FOR GFR 0.77 MG/DL (0.55-1.30); FERRITIN 34.7 NG/ML (7.3-270.7); FREE T4 1.24 NG/DL (0.89-1.76); GLOMERULAR FILTRATION RATE > 60.0 (>45); GLUCOSE, FASTING 110 MG/DL (74-106); POTASSIUM SERUM 3.6 MMOL/L (3.5-5.1); SODIUM LEVEL 142 MMOL/L (136-145); THYROID STIMULATING HORMONE 0.054 uIU/ML (0.55-4.78)
== END ==
LOC: M PLALAB 14:18
PROVIDERS: ATTEND Family Medicine
DX: Z01.810 Encounter for preprocedural cardiovascular examination (principal)

== ENCOUNTER 2023-04-15 11:56 | Inpatient (IN) | payer BC ==
[~2023-04-15] VITALS: Ht 160 cm; Wt 89.3 kg
[~2023-04-15 11:56] MED LIST changes: +ceFAZolin SOD 2 GM in IV 1 EA IV ONE
[2023-04-15] MEDS ORDERED: LR 1,000 ML IV SCH ×2 (12:25→18:00)
[2023-04-15] MEDS ORDERED: ONDANSETRON 4MG 2ML VIAL As Ordered ONE (13:35)
[2023-04-15] MEDS ORDERED: LIDOCAINE 2% 100MG/5ML SDV (FOR ANES.) As Ordered ONE (13:35)
[2023-04-15] MEDS ORDERED: fentaNYL 100 MCG/2 ML INJECTION As Ordered ONE (13:35)
[2023-04-15] MEDS ORDERED: propofoL 200 MG/20 ML VIAL As Ordered ONE (13:35)
[2023-04-15] MEDS ORDERED: MIDAZOLAM INJ 2MG/2ML VIAL As Ordered ONE (13:35)
[2023-04-15] MEDS ORDERED: EPINEPHrine INJ 1 MG/ML 1ML AMP As Ordered ONE (14:56)
[2023-04-15] MEDS ORDERED: GENTAMICIN SULF 80MG/2ML VIAL As Ordered ONE (14:56)
[2023-04-15] MEDS ORDERED: dexmedeTOMIDine (4MCG/ML)200MCG/50ML BTL (PRECEDEX) As Ordered ONE (15:02)
[2023-04-15] MEDS ORDERED: ACETAMINOPHEN 1000MG 100ML IV BAG As Ordered ONE (15:51)
[2023-04-15] MEDS ORDERED: ePHEDrine SULFATE 25 MG/5 ML(5MG/ML) SYRINGE As Ordered ONE (16:00)
[2023-04-15] MEDS ORDERED: HYDROmorphone HCL 2MG/ML 1ML VIAL As Ordered ONE (17:47)
[2023-04-15] MEDS ORDERED: ONDANSETRON 4MG 2ML VIAL IV PRN (18:00)
[2023-04-15] MEDS ORDERED: HYDROMORPHONE HCL 0.5 MG/ 0.5 ML SYRINGE IV PRN (18:00)
[2023-04-15] MEDS ORDERED: fentaNYL 100 MCG/2 ML INJECTION IV PRN (18:00)
[2023-04-15] MEDS ORDERED: oxyCODONE 5MG TAB PO PRN (18:00)
[2023-04-15] MEDS ORDERED: ceFAZolin 1GM VIAL IM SCH (18:35)
[2023-04-15] MEDS ORDERED: MOM 30ML SUSPENSION UDC PO PRN (18:55)
[2023-04-15] MEDS ORDERED: MAALOX 30 ML SUSP *UDC PO PRN (18:55)
[2023-04-15 19:15] VITALS: BP 160/83; TEMP 97.5; O2SAT 98
[2023-04-15 19:31] LABS: HEMATOCRIT 35.4 % (36.0-47.0); HEMOGLOBIN 10.8 g/dl (12.0-15.5); MEAN CORPUSCULAR HEMOGLOBIN 26.3 pg (27.0-33.0); MEAN CORPUSCULAR HGB CONC 30.5 g/dl (32.0-36.5); MEAN CORPUSCULAR VOLUME 86.1 fl (80.0-96.0); PLATELET COUNT, AUTOMATED 275 10^3/uL (150-450); RED BLOOD COUNT 4.11 10^6/uL (4.00-5.40); WHITE BLOOD COUNT 8.9 10^3/uL (4.0-10.0)
[2023-04-15 19:45] VITALS: BP 149/81; TEMP 97.2; O2SAT 98
[2023-04-15 19:59] LABS: ALBUMIN 3.1 G/DL (3.2-5.2); ALKALINE PHOSPHATASE 56 U/L (46-116); ALT/SGPT 20 U/L (7.0-40); AST/SGOT 35 U/L (<34); BILIRUBIN,TOTAL 0.4 MG/DL (0.3-1.2); BLOOD UREA NITROGEN 15 MG/DL (9-23); CALCIUM LEVEL 9.1 MG/DL (8.3-10.6); CARBON DIOXIDE LEVEL 24 MMOL/L (20-31); CHLORIDE LEVEL 107 MMOL/L (98-107); CREATININE FOR GFR 0.74 MG/DL (0.55-1.30); GLOMERULAR FILTRATION RATE > 60.0 (>45); GLUCOSE, FASTING 169 MG/DL (74-106); POTASSIUM SERUM 4.2 MMOL/L (3.5-5.1); SODIUM LEVEL 140 MMOL/L (136-145); TOTAL PROTEIN 6.5 G/DL (5.7-8.2)
[2023-04-15 20:15] VITALS: BP 148/81; TEMP 97.3; O2SAT 98
[2023-04-15] MEDS: DOCUSATE SODIUM 100MG CAPSULE PO SCH (20:23)
[2023-04-15 21:15] VITALS: BP 143/81; TEMP 97.3; O2SAT 97
[2023-04-15 22:15] VITALS: BP 139/73; TEMP 97.3; O2SAT 98
[2023-04-15 23:15] VITALS: BP 135/74; TEMP 97; O2SAT 96
[2023-04-15] MEDS: ceFAZolin SOD 1 GM in D5W MINI-BAG PLUS 50 ML IV SCH (23:59)
[2023-04-16] MEDS: ACETAMINOPHEN TAB 650MG DOSE (2X325MG) PO PRN ×4 (00:07→21:21)
[2023-04-16 03:15] VITALS: BP 119/65; TEMP 97.3; O2SAT 97
[2023-04-16] MEDS ORDERED: traMADol 50 MG TAB PO PRN (05:25)
[2023-04-16] MEDS: LEVOTHYROXINE 88MCG TABLET (0.088 MG) PO SCH (05:55)
[2023-04-16 07:15] VITALS: BP 119/67; TEMP 97.3; O2SAT 98
[2023-04-16 07:28] LABS: HEMATOCRIT 34.6 % (36.0-47.0); HEMOGLOBIN 10.5 g/dl (12.0-15.5); MEAN CORPUSCULAR HEMOGLOBIN 26.2 pg (27.0-33.0); MEAN CORPUSCULAR HGB CONC 30.3 g/dl (32.0-36.5); MEAN CORPUSCULAR VOLUME 86.3 fl (80.0-96.0); PLATELET COUNT, AUTOMATED 291 10^3/uL (150-450); RED BLOOD COUNT 4.01 10^6/uL (4.00-5.40); WHITE BLOOD COUNT 10.6 10^3/uL (4.0-10.0)
[2023-04-16 07:57] LABS: BLOOD UREA NITROGEN 14 MG/DL (9-23); CALCIUM LEVEL 8.7 MG/DL (8.3-10.6); CARBON DIOXIDE LEVEL 28 MMOL/L (20-31); CHLORIDE LEVEL 107 MMOL/L (98-107); CREATININE FOR GFR 0.72 MG/DL (0.55-1.30); GLOMERULAR FILTRATION RATE > 60.0 (>45); GLUCOSE, FASTING 111 MG/DL (74-106); MAGNESIUM LEVEL 1.5 MG/DL (1.8-2.4); POTASSIUM SERUM 4.1 MMOL/L (3.5-5.1); SODIUM LEVEL 142 MMOL/L (136-145)
[2023-04-16] MEDS: CALCIUM/VITAMIN D 500 MG TAB PO SCH (08:36)
[2023-04-16] MEDS: MULTIVITAMINS/MINERALS THERAP 1 TAB PO SCH (08:36)
[2023-04-16] MEDS: OMEPRAZOLE 20MG CAP PO SCH (08:36)
[2023-04-16] MEDS: DOCUSATE SODIUM 100MG CAPSULE PO SCH ×2 (08:36→21:17)
[2023-04-16] MEDS: HEPARIN SOD (PORCINE) 5000UNITS/ML 1ML VIAL/SYRINGE SQ SCH ×2 (08:37→21:17)
[2023-04-16] MEDS: ASCORBIC ACID 500 MG TAB PO SCH (08:37)
[2023-04-16] MEDS: ceFAZolin SOD 1 GM in D5W MINI-BAG PLUS 50 ML IV SCH ×2 (08:37→15:44)
[2023-04-16] MEDS: FERROUS SULFATE 325MG TAB PO SCH (08:37)
[2023-04-16 11:15] VITALS: BP 123/77; TEMP 97.5; O2SAT 97
[2023-04-16 15:15] VITALS: BP 129/68; TEMP 97.5; O2SAT 94
[2023-04-16 19:15] VITALS: BP 128/65; TEMP 97.9; O2SAT 93
[2023-04-17] MEDS: ceFAZolin SOD 1 GM in D5W MINI-BAG PLUS 50 ML IV SCH ×3 (00:09→15:59)
[2023-04-17] MEDS: ACETAMINOPHEN TAB 650MG DOSE (2X325MG) PO PRN ×3 (03:07→16:00)
[2023-04-17 05:40] VITALS: BP 139/75; TEMP 97.3; O2SAT 90
[2023-04-17] MEDS: LEVOTHYROXINE 88MCG TABLET (0.088 MG) PO SCH (06:04)
[2023-04-17] MEDS: FERROUS SULFATE 325MG TAB PO SCH (09:13)
[2023-04-17] MEDS: ASCORBIC ACID 500 MG TAB PO SCH (09:13)
[2023-04-17] MEDS: CALCIUM/VITAMIN D 500 MG TAB PO SCH (09:13)
[2023-04-17] MEDS: MULTIVITAMINS/MINERALS THERAP 1 TAB PO SCH (09:13)
[2023-04-17] MEDS: DOCUSATE SODIUM 100MG CAPSULE PO SCH ×2 (09:13→20:23)
[2023-04-17] MEDS: OMEPRAZOLE 20MG CAP PO SCH (09:14)
[2023-04-17] MEDS: HEPARIN SOD (PORCINE) 5000UNITS/ML 1ML VIAL/SYRINGE SQ SCH ×2 (09:14→20:23)
[2023-04-17 19:57] VITALS: BP 139/75; TEMP 97.7; O2SAT 93
[2023-04-18] MEDS: ceFAZolin SOD 1 GM in D5W MINI-BAG PLUS 50 ML IV SCH ×3 (00:06→16:08)
[2023-04-18] MEDS: ACETAMINOPHEN TAB 650MG DOSE (2X325MG) PO PRN ×4 (00:09→20:19)
[2023-04-18] MEDS: LEVOTHYROXINE 88MCG TABLET (0.088 MG) PO SCH (05:33)
[2023-04-18 05:40] VITALS: BP 142/72; TEMP 97.7; O2SAT 96
[2023-04-18 06:25] LABS: HEMOGLOBIN 10.5 g/dl (12.0-15.5); MEAN CORPUSCULAR HEMOGLOBIN 25.4 pg (27.0-33.0); MEAN CORPUSCULAR HGB CONC 29.2 g/dl (32.0-36.5); PLATELET COUNT, AUTOMATED 292 10^3/uL (150-450); RED BLOOD COUNT 4.14 10^6/uL (4.00-5.40)
[2023-04-18 06:53] LABS: BLOOD UREA NITROGEN 16 MG/DL (9-23); CALCIUM LEVEL 8.5 MG/DL (8.3-10.6); CARBON DIOXIDE LEVEL 29 MMOL/L (20-31); CHLORIDE LEVEL 109 MMOL/L (98-107); CREATININE FOR GFR 0.71 MG/DL (0.55-1.30); GLOMERULAR FILTRATION RATE > 60.0 (>45); GLUCOSE, FASTING 100 MG/DL (74-106); POTASSIUM SERUM 4.3 MMOL/L (3.5-5.1); SODIUM LEVEL 145 MMOL/L (136-145)
[2023-04-18] MEDS: CALCIUM/VITAMIN D 500 MG TAB PO SCH (08:21)
[2023-04-18] MEDS: OMEPRAZOLE 20MG CAP PO SCH (08:21)
[2023-04-18] MEDS: DOCUSATE SODIUM 100MG CAPSULE PO SCH ×2 (08:21→20:16)
[2023-04-18] MEDS: HEPARIN SOD (PORCINE) 5000UNITS/ML 1ML VIAL/SYRINGE SQ SCH ×2 (08:21→20:16)
[2023-04-18] MEDS: MULTIVITAMINS/MINERALS THERAP 1 TAB PO SCH (08:21)
[2023-04-18] MEDS: FERROUS SULFATE 325MG TAB PO SCH (08:21)
[2023-04-18] MEDS: ASCORBIC ACID 500 MG TAB PO SCH (08:21)
[2023-04-18] MEDS: SPIRONOLACTONE 25 MG TAB PO SCH (09:00)
[2023-04-18 14:10] VITALS: BP 137/71; TEMP 97.5; O2SAT 97
[2023-04-18 21:58] VITALS: BP 135/86; TEMP 97.5; O2SAT 99
[2023-04-19] MEDS: ceFAZolin SOD 1 GM in D5W MINI-BAG PLUS 50 ML IV SCH ×4 (00:14→23:54)
[2023-04-19] MEDS: ACETAMINOPHEN TAB 650MG DOSE (2X325MG) PO PRN ×4 (00:16→20:23)
[2023-04-19 05:35] VITALS: BP 130/82; TEMP 97.3; O2SAT 98
[2023-04-19] MEDS: LEVOTHYROXINE 88MCG TABLET (0.088 MG) PO SCH (05:46)
[2023-04-19] MEDS: ASCORBIC ACID 500 MG TAB PO SCH (08:15)
[2023-04-19] MEDS: FERROUS SULFATE 325MG TAB PO SCH (08:15)
[2023-04-19] MEDS: MULTIVITAMINS/MINERALS THERAP 1 TAB PO SCH (08:15)
[2023-04-19] MEDS: SPIRONOLACTONE 25 MG TAB PO SCH (08:15)
[2023-04-19] MEDS: OMEPRAZOLE 20MG CAP PO SCH (08:15)
[2023-04-19] MEDS: CALCIUM/VITAMIN D 500 MG TAB PO SCH (08:15)
[2023-04-19] MEDS: DOCUSATE SODIUM 100MG CAPSULE PO SCH ×2 (08:15→20:25)
[2023-04-19] MEDS: HEPARIN SOD (PORCINE) 5000UNITS/ML 1ML VIAL/SYRINGE SQ SCH ×2 (08:16→20:22)
[2023-04-20 05:38] VITALS: BP 133/79; TEMP 97.1; O2SAT 97
[2023-04-20] MEDS: LEVOTHYROXINE 88MCG TABLET (0.088 MG) PO SCH (06:15)
[2023-04-20] MEDS: ACETAMINOPHEN TAB 650MG DOSE (2X325MG) PO PRN ×3 (07:33→23:41)
[2023-04-20] MEDS: ceFAZolin SOD 1 GM in D5W MINI-BAG PLUS 50 ML IV SCH ×3 (07:33→23:41)
[2023-04-20] MEDS: DOCUSATE SODIUM 100MG CAPSULE PO SCH ×2 (08:25→20:48)
[2023-04-20] MEDS: CALCIUM/VITAMIN D 500 MG TAB PO SCH (08:25)
[2023-04-20] MEDS: SPIRONOLACTONE 25 MG TAB PO SCH (08:25)
[2023-04-20] MEDS: MULTIVITAMINS/MINERALS THERAP 1 TAB PO SCH (08:25)
[2023-04-20] MEDS: OMEPRAZOLE 20MG CAP PO SCH (08:25)
[2023-04-20] MEDS: FERROUS SULFATE 325MG TAB PO SCH (08:25)
[2023-04-20] MEDS: HEPARIN SOD (PORCINE) 5000UNITS/ML 1ML VIAL/SYRINGE SQ SCH ×2 (08:25→20:50)
[2023-04-20] MEDS: ASCORBIC ACID 500 MG TAB PO SCH (08:26)
[2023-04-21] MEDS: LEVOTHYROXINE 88MCG TABLET (0.088 MG) PO SCH (05:41)
[2023-04-21] MEDS: ACETAMINOPHEN TAB 650MG DOSE (2X325MG) PO PRN ×4 (05:41→18:07)
[2023-04-21 06:00] VITALS: BP 112/68; TEMP 97.2; O2SAT 94
[2023-04-21] MEDS: HEPARIN SOD (PORCINE) 5000UNITS/ML 1ML VIAL/SYRINGE SQ SCH ×2 (09:02→20:18)
[2023-04-21] MEDS: ceFAZolin SOD 1 GM in D5W MINI-BAG PLUS 50 ML IV SCH ×2 (09:02→17:08)
[2023-04-21] MEDS: CALCIUM/VITAMIN D 500 MG TAB PO SCH (09:03)
[2023-04-21] MEDS: OMEPRAZOLE 20MG CAP PO SCH (09:04)
[2023-04-21] MEDS: ASCORBIC ACID 500 MG TAB PO SCH (09:04)
[2023-04-21] MEDS: FERROUS SULFATE 325MG TAB PO SCH (09:05)
[2023-04-21] MEDS: SPIRONOLACTONE 25 MG TAB PO SCH (09:05)
[2023-04-21] MEDS: MULTIVITAMINS/MINERALS THERAP 1 TAB PO SCH (09:06)
[2023-04-21] MEDS: DOCUSATE SODIUM 100MG CAPSULE PO SCH ×2 (09:06→20:19)
[2023-04-21 20:19] VITALS: BP 108/73
[2023-04-22] MEDS: ceFAZolin SOD 1 GM in D5W MINI-BAG PLUS 50 ML IV SCH ×2 (00:37→09:28)
[2023-04-22] MEDS: ACETAMINOPHEN TAB 650MG DOSE (2X325MG) PO PRN ×3 (00:38→12:12)
[2023-04-22 05:24] VITALS: BP 116/68; TEMP 97.3; O2SAT 95
[2023-04-22] MEDS: LEVOTHYROXINE 88MCG TABLET (0.088 MG) PO SCH (05:54)
[2023-04-22 09:16] VITALS: BP 115/63
[2023-04-22] MEDS: FERROUS SULFATE 325MG TAB PO SCH (09:28)
[2023-04-22] MEDS: ASCORBIC ACID 500 MG TAB PO SCH (09:28)
[2023-04-22] MEDS: MULTIVITAMINS/MINERALS THERAP 1 TAB PO SCH (09:28)
[2023-04-22] MEDS: OMEPRAZOLE 20MG CAP PO SCH (09:28)
[2023-04-22] MEDS: DOCUSATE SODIUM 100MG CAPSULE PO SCH (09:28)
[2023-04-22] MEDS: SPIRONOLACTONE 25 MG TAB PO SCH (09:28)
[2023-04-22] MEDS: HEPARIN SOD (PORCINE) 5000UNITS/ML 1ML VIAL/SYRINGE SQ SCH (09:28)
[2023-04-22] MEDS: CALCIUM/VITAMIN D 500 MG TAB PO SCH (09:28)
== END 2023-04-22 15:30 | disposition home health service (06) | DRG 361 ==
LOC: M SDC 11:56 → M MS5PR 19:26
PROVIDERS: ADMIT Internal Medicine; ATTEND Internal Medicine Nephrology
PROC: 0HBLXZZ Excision of Left Lower Leg Skin, External Approach (ICD-10-PCS; 2023-04-15)
PROC: 0HR Skin and Breast, Replacement (ICD-10-PCS; principal; 2023-04-15 13:30)
DX: L97.328 Non-pressure chronic ulcer of left ankle with other specified severity (principal); I10 Essential (primary) hypertension; E03.9 Hypothyroidism, unspecified; I87.2 Venous insufficiency (chronic) (peripheral); K21.9 Gastro-esophageal reflux disease without esophagitis; D50.9 Iron deficiency anemia, unspecified; I73.9 Peripheral vascular disease, unspecified; Z96.642 Presence of left artificial hip joint; Z79.890 Hormone replacement therapy; Z79.899 Other long term (current) drug therapy; Z88.6 Allergy status to analgesic agent; Z86.718 Personal history of other venous thrombosis and embolism; Z88.8 Allergy status to other drugs, medicaments and biological substances

== ENCOUNTER → 2023-07-23 | Outpatient (REF) | payer BC ==
[~2023-07-23] MED LIST changes: -ceFAZolin SOD 2 GM in IV 1 EA IV ONE
== END ==
LOC: M LAB REF 12:24
PROVIDERS: ATTEND Plastic Surgery Surgery of the Hand
DX: I87.312 Chronic venous hypertension (idiopathic) with ulcer of left lower extremity (principal); S81.802D Unspecified open wound, left lower leg, subsequent encounter

== ENCOUNTER → 2024-11-16 | Outpatient (CLI) | payer BC ==
[2024-11-16 12:55] LABS: ALT/SGPT 20.0 U/L (7.0-40); AST/SGOT 40.0 U/L (<34); CALCIUM LEVEL 9.6 MG/DL (8.3-10.6); CARBON DIOXIDE LEVEL 24.0 MMOL/L (20-31); CHLORIDE LEVEL 105.0 MMOL/L (98-107); CHOLESTEROL LEVEL 267.0 MG/DL (<200); CHOLESTEROL RISK RATIO 6.64 (<5); CREATININE FOR GFR 1.16 MG/DL (0.55-1.30); GLOMERULAR FILTRATION RATE 53.6 (>45); LDL CHOLESTEROL 161.4 MG/DL (<100); NON-HDL-C 226.8 MG/DL; POTASSIUM SERUM 5.0 MMOL/L (3.5-5.1); SODIUM LEVEL 141.0 MMOL/L (136-145); TRIGLYCERIDES LEVEL 327.0 MG/DL (<150)
[2024-11-16 12:56] LABS: FREE T4 1.0 NG/DL (0.89-1.76)
[2024-11-16 13:23] LABS: ESTIMATED AVERAGE GLUCOSE 126.0 MG/DL (60-110)
== END ==
LOC: M WUC 08:52
PROVIDERS: ATTEND Family Medicine
DX: E03.9 Hypothyroidism, unspecified (principal); D50.9 Iron deficiency anemia, unspecified; I10 Essential (primary) hypertension; E66.9 Obesity, unspecified; Z82.3 Family history of stroke